=== PATIENT | female | born 1935 | race Caucasian/White ===

== ENCOUNTER 2016-07-26 05:19 | Inpatient (IN) | payer OTHER ==
--- NOTE | 2016-06-30 11:48 | PAT Medication Instructions ---
Service Date Jun 30, 2016. Current Home Medication List Aspirin (Aspirin Ec), 81 MG PO QAM Multivitamin (Multivitamin), 1 TAB PO QAM Medication Instructions For Your Scheduled Surgery - Hold the following medications the morning of surgery: Multivitamin (Multivitamin), 1 TAB PO QAM - Take the following medications the morning of surgery with a sip of water: Aspirin (Aspirin Ec), 81 MG PO QAM If you have any questions please call us at [phone] (Christa Lauren PA-C) or [phone] or [phone]
--- NOTE | 2016-06-30 12:36 | DIAGNOSTIC IMAGING REPORT ---
TWO VIEW CHEST CLINICAL HISTORY: Preoperative examination. FINDINGS: PA and lateral chest radiographs are obtained. No prior studies are available for comparison at the time of dictation. The heart is mildly enlarged and there is atherosclerotic calcification of the thoracic aorta. The pulmonary vasculature is noncongested. Enlargement of the central pulmonary arteries suggests pulmonary artery hypertension. Nonspecific interstitial thickening and biapical scarring are identified. Scattered calcified granulomas are observed. No airspace consolidation is seen typical for pneumonia and there is no pleural effusion. No pneumothorax is identified. The skeletal structures are osteopenic. Degenerative changes noted throughout the thoracic spine. IMPRESSION: Mild cardiac enlargement with no acute cardiopulmonary abnormality. Electronically signed by: Eulalio Green M.D. 06/30/2016 12:35 PM Dictated Date/Time: 06/30/2016 12:33 PM
[2016-06-30 12:50] LABS: BASO % 0.8 %; BASO ABS # 0.05 K/uL (0-0.2); COMPLETE YES; EOS % 2.3 %; HEMATOCRIT 39.5 % (37-47); LYMPH % 33.8 %; MEAN CELL VOLUME 97.3 fL (80-100); MEAN CORPUSCULAR HEMOGLOBIN 33.5 pg (25-34); MEAN CORPUSCULAR HGB CONC 34.4 g/dl (32-36); MEAN PLATELET VOLUME 10.5 fL (7.4-10.4); MONO % 7.4 %; NEUT % 55.7 %; PLATELET COUNT 218 K/uL (130-400); RED BLOOD COUNT 4.06 M/uL (4.2-5.4); WHITE BLOOD COUNT 6.21 K/uL (4.8-10.8)
[2016-06-30 12:53] LABS: URINE APPEARANCE CLEAR (CLEAR); URINE BILIRUBIN NEG (NEG); URINE COLOR YELLOW; URINE EPITHELIAL CELL AUTO >30 /lpf (0-5); URINE NITRITE NEG (NEG); URINE PH 5.5 (4.5-7.5); URINE SPECIFIC GRAVITY 1.013 (1.000-1.030); UROBILINOGEN NEG (NEG)
[2016-06-30 12:54] LABS: MANUAL MICROSCOPIC REQUIRED? NO; REVIEW REQ? NO
[2016-06-30 12:59] LABS: INR 0.9 (0.9-1.1); PARTIAL THROMBOPLASTIN RATIO 1.4
[2016-06-30 13:10] LABS: CALCIUM 9.1 mg/dl (8.5-10.1); CREATININE 0.71 mg/dl (0.60-1.20); POTASSIUM 4.9 mmol/L (3.5-5.1)
[2016-06-30 14:03] LABS: ESTIMATED AVERAGE GLUCOSE 105 mg/dl; HA1C FLAG Normal (Normal)
--- NOTE | 2016-06-30 15:40 | History and Physical ---
History & Physical Date Jun 30, 2016. Chief Complaint left knee pain History of Present Illness Nelly is a pleasant 80-year-old female who presents for preoperative evaluation prior to a left knee replacement. Patient states that they have been having pain in this knee for many years now, which has gradually worsened, it has now gotten to the point it is affecting her daily activities including walking, standing, going up and down steps. Patient has tried and failed conservative measures including previous cortisone injection, viscosupplementation, bracing, physical therapy, and PO NSAIDs with no relief. At this point in time, patient has failed conservative measures and would like to proceed with a left knee replacement. Past Medical/Surgical History she denies a history of hypertension, high cholesterol, diabetes, or bleeding/ clotting disorders. Additional History Hepatic Disease: No Endocrine Disorder: No Kidney Disease: No Hypertension: No Heart Disease: No Bleeding Tendencies: No Allergies Coded Allergies: Cefazolin (Verified Allergy, Unknown, RASH, 06/30/16) Prednisone (Verified Allergy, Unknown, ITCHY, 06/30/16) Home Medications Scheduled Aspirin (Aspirin Ec), 81 MG PO QAM Multivitamin (Multivitamin), 1 TAB PO QAM Physical Examination Skin: warm/dry, no rash Eyes: normal inspection, EOMI, sclerae normal ENT: normal ENT inspection, pharynx normal Head: normocephalic, atraumatic Neck: supple, no adenopathy, trachea midline Respiratory/Chest: lungs clear, normal breath sounds, no respiratory distress Cardiovascular: regular rate, rhythm, no edema, no murmur Abdomen / GI: normal bowel sounds, non tender Addiitonal Comments: Left Knee Exam Physical Exam Exam Findings Details Knee ROM L * Active ROM - Flexion: 120 degrees, Extension: 5 degrees, Factors: normal, Description: active pain free range of motion. Passive ROM - Factors: normal, Description: passive pain free range of motion. Knee ROM R * Active ROM - Factors: normal, Description: active pain free range of motion. Passive ROM - Factors: normal, Description: passive pain free range of motion. Strength LE Normal Strength Description - Normal lower extremity: Bilateral. Knee * Gait: Antalgic. Alignment - Left: varus, Clinical. Ecchymosis - Left: negative. Effusion - Left: mild. Swelling - Left: mild. Flexibility - Left: normal. Maximum tenderness - Left: Medial Joint Line. Patella exam - Crepitation - Left: negative. Patella position - Left: neutral. Tilt - Left: equal. [facility]'s - medial - Left: Positive. Knee Comments The patient has no calf tenderness. Knee Normal Inspection - Atrophy - Left: Absent. Skin - Left: Normal. Patella exam - Apprehension - Left: Negative. Q-angle - Left: Normal. Angel's - Left: Negative. [facility]'s - lateral - Left: Negative. Posterior drawer - Left: Negative. Anterior drawer - Left: Negative. Valgus stress - Left: Negative. Varus stress - Left: Negative. Extensor lag - Left: Normal. Neurovascular LE Normal Neurovascular examination including reflexes, sensation , and pulses is within normal limits. Left Knee X-Ray Xrays reviewed of the left knee showing findings consistent with degenerative joint disease including joint space narrowing, subchondral sclerosis and peripheral osteophyte formation. no acute bony pathology, overall varus alignment. Impression: degenerative joint disease of the left knee with no acute bony pathology noted. Diagnosis 1. Left Knee DJD Plan of Treatment Further care discussed with patient and at this point in time has failed conservative measures and would like to proceed with a left total knee replacement. Plan on discharge will be home with home health physical therapy. DVT prophalaxis with TEDs, SCDs and will also place on aspirin 81 mg p.o. b.i.d. for a month postop. Patient will have follow up appointment in our office two weeks post op for staple/suture removal and re-evaluation. Patient otherwise has no other questions or concerns.
[2016-07-26] VITALS (10 sets, daily range): BP systolic 93–113; BP diastolic 56–70; PULSE 61–86; TEMP 36.3–36.9; O2SAT 92–99; Ht 154.9 cm; Wt 47.0 kg
[~2016-07-26] VITALS: Ht 154.9 cm; Wt 47.0 kg
[~2016-07-26 05:19] MED LIST: ASPI81TA28 PO; MISSING PHYSICIAN SIGNATURE ON ORDER SCH; MULT-506 PO
[2016-07-26] MEDS ORDERED: VANCOMYCIN INJ 750 MG in SODIUM CHLORIDE 0.9% 250ML 250 ML IV SCH (06:00)
[2016-07-26] MEDS ORDERED: FAMOTIDINE 20 MG TAB PO SCH (06:00)
[2016-07-26] MEDS ORDERED: ROPIVACAINE 5MG/ML 30 ML 150 MG, BUPIVACAINE/EPINEPHR 0.5% MPF 30 ML, KETOROLAC TROMETH... INFIL SCH ×7 (06:00)
[2016-07-26] MEDS ORDERED: LACTATED RINGER'S 1000ML 1,000 ML IV SCH (06:00)
[2016-07-26] MEDS ORDERED: LACTATED RINGER'S 1000ML IV SCH (06:00)
[2016-07-26] MEDS ORDERED: DEXAMETHASONE 4 MG TAB PO SCH (06:00)
[2016-07-26] MEDS ORDERED: ACETAMINOPHEN 500 MG TAB PO SCH (06:00)
[2016-07-26] MEDS ORDERED: LACTATED RINGER'S 500 ML IV SCH (06:00)
[2016-07-26] MEDS ORDERED: LACTATED RINGER'S 1000ML 500 ML IV ONE (06:00)
[2016-07-26] MEDS ORDERED: CeleBREX 200 MG CAP PO SCH (06:00)
[2016-07-26] MEDS ORDERED: GABAPENTIN 300 MG CAP PO SCH (06:00)
[2016-07-26] MEDS ORDERED: METOCLOPRAMIDE HCL 10 MG TAB PO SCH (06:00)
[2016-07-26] MEDS ORDERED: BUPIVACAINE 0.5 % 5 MG/1 ML PF 10ML VIAL ONE ×2 (06:33)
[2016-07-26] MEDS ORDERED: FENTANYL CITRATE INJ 50 MCG/1 ML 2 ML VIAL ONE (06:39)
[2016-07-26] MEDS ORDERED: LIDOCAINE HCL 2% 2 ML VIAL (20MG/ML) ONE (06:39)
[2016-07-26] MEDS ORDERED: MIDAZOLAM HCL 1 MG/ML 2ML VIAL ONE (06:39)
[2016-07-26] MEDS ORDERED: PROPOFOL IV EMULSION 10 MG/ML 20 ML VIAL IV ONE (06:39)
[2016-07-26] MEDS ORDERED: FENTANYL CITRATE INJ 50 MCG/1 ML 2 ML VIAL IV PRN (06:45)
[2016-07-26] MEDS ORDERED: ATROPINE SULFATE 0.1 MG/ML 5ML SYR IV PRN (06:45)
[2016-07-26] MEDS ORDERED: ONDANSETRON INJ 2 MG/ML 2 ML VIAL IV PRN ×2 (06:45→08:45)
[2016-07-26] MEDS ORDERED: EpHEDrine SULFATE INJ 50 MG/ML AMP IV PRN (06:45)
[2016-07-26] MEDS ORDERED: MoRPHine SULFATE 10 MG/ML CARP/VIAL IV PRN ×2 (06:45→10:45)
[2016-07-26] MEDS ORDERED: MEPERIDINE HCL 25 MG/ML CARP IV PRN (06:45)
[2016-07-26] MEDS ORDERED: ORTHO JOINT ANESTHETIC ONE (06:47)
[2016-07-26] MEDS ORDERED: POVIDONE-IODINE OP SOLN 30 ML BTL ONE (06:47)
[2016-07-26] MEDS ORDERED: BACITRACIN 50000 UNIT VIAL ONE (06:48)
[2016-07-26] MEDS: TRANEXAMIC ACID INJ 1,000 MG in SODIUM CHLORIDE 0.9% 100ML 100 ML IV SCH ×2 (06:50→11:46)
--- NOTE | 2016-07-26 06:52 | History & Physical Bridge Note ---
H&P Re-Evaluation Bridge Note: I have examined the patient, reviewed the History & Physical and in the interval since the performance of the History & Physical I have noted the following changes of clinical significance: No changes noted
[2016-07-26] MEDS ORDERED: PHENYLEPHRINE 100MCG/ML 5ML SYR ONE (07:55)
--- NOTE | 2016-07-26 07:56 | [facility] Post Operative Brief Note ---
Immediate Operative Summary Operative Date Jul 26, 2016. Pre-Operative Diagnosis Left Knee Degenerative Joint Disease Post-Operative Diagnosis Same as preoperative Procedure(s) Performed Left Total Knee Arthroplasty, Cemented Surgeon Dr. Riki Majano Residential Director Surgeon(s) Murray Burns PA-C Estimated Blood Loss 5ml Findings severe djd lt knee Specimens A.) Left knee bone and tissue Complication(s) None Disposition Recovery Room / PACU
--- NOTE | 2016-07-26 08:10 | OPERATIVE REPORT ---
DATE OF OPERATION: 07/26/2016 PREOPERATIVE DIAGNOSIS: Severe end-stage degenerative joint disease, left knee. POSTOPERATIVE DIAGNOSIS: Severe end-stage degenerative joint disease, left knee. PROCEDURE: Left total knee arthroplasty utilizing Sanchez \T\ Nephew Journey II patient-matched knee, size 3 femur, 2 tibia, 12 poly, 29 patella. SURGEON: Dr. Majano. FARM MACHINERY ASSEMBLER: KHANH Denney, who was necessary for prepping, draping, retraction, wound closure of deep fascia, subcu, and skin, and was necessary for the case. ESTIMATED BLOOD LOSS: 5 mL COMPLICATIONS: None. TOURNIQUET TIME: 40 minutes. HISTORY OF PRESENT ILLNESS: The patient is a very pleasant 81-year-old white female who presents with severe endstage DJD about her left knee. She presents today for left total knee arthroplasty. Risks and complications have been discussed. She presents for total knee arthroplasty as noted above. OPERATION AND FINDINGS: PROCEDURE: The patient was properly prepped and draped in supine position for total knee arthroplasty after identifying the appropriate surgical site. An anterior midline incision was made through the subcutaneous tissues down to the region of the extensor mechanism. A medial parapatellar incision was subsequently made. Meticulous hemostasis was obtained and performed at all times. The patella having been subluxed lateralward, medial and lateral meniscal remnants were excised. The patellar cut was then initially made and was sized to the appropriate size. After subluxing the tibia forward the appropriate meniscal fragments having been removed the distal femur was then cut first utilizing a Sanchez and Nephew block. The distal femoral cuts and chamfer cuts were all made under direct visualization and the proximal tibial osteotomy cut was also made utilizing Sanchez and Nephew blocks and checked with an extramedullary guide. The appropriate trial components on the femur and tibia were placed. Appropriate trial spacers were used to check flexion and extension gaps. With flexion and extension gaps being equal, the components were then subsequently after thorough irrigation and debridement lavage components were then subsequently cemented in the following order: femur, tibia and patella. Exparel was used for intraoperative anesthesia, the medial parapatellar incision was closed utilizing #1 Vicryl, subQ was closed with 2-0 Vicryl, skin was closed with skin clips. A sterile compression dressing was placed. The patient was taken to recovery room in stable condition. Due to the complex nature of the procedure, the entire surgery was performed with the operational assistance of KHANH Denney. The assistant men's soccer coach, under direct supervision, was involved in the actual performance of all aspects of the surgical procedure including hemostasis, tissue retraction and incision, instrument management, patient positioning, and wound closure. I attest to the content of the Intraoperative Record and any orders documented therein. Any exceptio ns are noted below.
[2016-07-26] MEDS ORDERED: ONDANSETRON INJ 2 MG/ML 2 ML VIAL ONE (08:21)
[2016-07-26] MEDS ORDERED: KETOROLAC TROMETHAMINE 30 MG/ML VIAL IV. PRN (08:45)
[2016-07-26] MEDS ORDERED: BISACODYL 10 MG SUPP PR PRN (08:45)
[2016-07-26] MEDS ORDERED: MAGNESIUM HYDROXIDE SUSP 30 ML UDC PO PRN (08:45)
[2016-07-26] MEDS ORDERED: SOD PHOSPHATE/SOD BIPHOSPHATE ENEMA 132 ML BTL PR PRN (08:45)
[2016-07-26] MEDS ORDERED: ALUMINUM/MAGNESIUM/SIMETH (MAALOX MAX) 30 ML UDC PO PRN (08:45)
[2016-07-26] MEDS ORDERED: MoRPHine SULFATE 2 MG/ML CARP IV PRN ×2 (08:45→10:45)
--- NOTE | 2016-07-26 09:08 | DIAGNOSTIC IMAGING REPORT ---
LEFT KNEE 1 OR 2 VIEWS ROUTINE CLINICAL HISTORY: AP/LATERAL IN PACU LEFT KNEE postoperative evaluation COMPARISON: None. DISCUSSION: Total left knee arthroplasty. Good contact between prosthetic and underlying bone. Surgical drains are in position. Expected soft tissue postoperative change IMPRESSION: Anatomic alignment status post total left knee replacement Electronically signed by: Murray Carmen M.D. 07/26/2016 9:07 AM Dictated Date/Time: 07/26/2016 9:07 AM
--- NOTE | 2016-07-26 10:26 | Anesthesiology Progress Note ---
Anesthesia Post Op Note Date & Time Jul 26, 2016 at 10:26 Vital Signs Pain Intensity: 0 Vital Signs Past 12 Hours Date Time Temp Pulse Resp B/P Pulse Ox O2 Delivery O2 Flow Rate FiO2 07/26/16 09:40 36.6 90 18 97/53 95 Nasal Cannula 2 07/26/16 09:30 90 16 94/50 95 Nasal Cannula 2 07/26/16 09:20 85 18 92/57 97 Nasal Cannula 2 07/26/16 09:10 36.6 87 16 90/55 100 Nasal Cannula 2 07/26/16 09:00 36.6 91 16 95/54 100 Nasal Cannula 2 07/26/16 08:50 87 16 96/56 100 Mask 10 07/26/16 08:40 85 16 94/57 100 Mask 10 07/26/16 08:33 36.3 84 12 105/62 97 Mask 10 07/26/16 05:41 36.4 79 18 98/63 94 Room Air Notes Mental Status: alert / awake / arousable, participated in evaluation Pt Amnestic to Procedure: Yes Nausea / Vomiting: adequately controlled Pain: adequately controlled Airway Patency, RR, SpO2: stable & adequate BP & HR: stable & adequate Hydration State: stable & adequate Neuraxial Anesthesia: was administered, sensory block is resolving Anesthetic Complications: no major complications apparent
[2016-07-26] MEDS ORDERED: MoRPHine SULFATE 4 MG/ML 1 ML CARP\\VIAL IV PRN (10:45)
[2016-07-26] MEDS: MULTIVITAMIN TAB PO SCH (11:46)
[2016-07-26] MEDS: D5W AND 1/2NSS + 20MEQ KCL 1,000 ML IV SCH ×2 (11:47→20:36)
[2016-07-26] MEDS ORDERED: INFLUENZA ADMINISTRATION CHARGE ONE (14:00)
[2016-07-26] MEDS ORDERED: INFLUENZA VIRUS QUAD VACCINE 0.5 ML SYR IM. ONE (14:00)
[2016-07-26] MEDS: CLINDAMYCIN IV 600 MG in DEXTROSE 5% ADD-VANTAGE 50ML 50 ML IV SCH ×2 (14:24→22:10)
[2016-07-26] MEDS: ACETAMINOPHEN 500 MG TAB PO SCH ×2 (14:24→22:10)
[2016-07-26] MEDS: OXYCODONE HCL IR 5 MG TAB (IMMEDIATE RELEASE) PO PRN ×2 (19:21→20:41)
[2016-07-26] MEDS: DOCUSATE SODIUM 100 MG CAP PO SCH (20:37)
[2016-07-26] MEDS: ASPIRIN 81 MG ECTAB PO SCH (20:38)
[2016-07-26] MEDS: SENNA 8.6 MG TAB PO SCH (20:38)
[2016-07-27 03:15] VITALS: BP 92/47; PULSE 71; TEMP 36.5; O2SAT 93
[2016-07-27] MEDS: ACETAMINOPHEN 500 MG TAB PO SCH ×3 (05:15→20:43)
[2016-07-27] MEDS: D5W AND 1/2NSS + 20MEQ KCL 1,000 ML IV SCH (05:16)
[2016-07-27] MEDS: OXYCODONE HCL IR 5 MG TAB (IMMEDIATE RELEASE) PO PRN ×3 (05:16→20:42)
[2016-07-27] MEDS ORDERED: NURSING VERBAL MED ORDER ONE (06:00)
[2016-07-27 07:26] VITALS: BP 97/58; PULSE 71; TEMP 36.5; O2SAT 91
[2016-07-27 07:48] LABS: HEMATOCRIT 32.3 % (37-47); MEAN CELL VOLUME 94.7 fL (80-100); MEAN CORPUSCULAR HEMOGLOBIN 32.6 pg (25-34); MEAN CORPUSCULAR HGB CONC 34.4 g/dl (32-36); MEAN PLATELET VOLUME 9.4 fL (7.4-10.4); PLATELET COUNT 187 K/uL (130-400); RED BLOOD COUNT 3.41 M/uL (4.2-5.4); WHITE BLOOD COUNT 11.61 K/uL (4.8-10.8)
[2016-07-27 07:59] LABS: CALCIUM 7.9 mg/dl (8.5-10.1); CREATININE 0.79 mg/dl (0.60-1.20); POTASSIUM 4.4 mmol/L (3.5-5.1)
[2016-07-27 08:06] LABS: PROTHROMBIN TIME (PATIENT) 10.2 SECONDS (9.0-12.0)
--- NOTE | 2016-07-27 08:12 | Orthopedic Progress Note ---
Orthopedic Progress Note Date of Service Jul 27, 2016. Subjective Post OP Day: 1 (s/p Left TKA) Reports: feeling well, pain controlled w PO medications, Denies: SOB, calf pain , chest pain, complaints, light headedness, nausea / vomiting Objective calves soft nontender, N/V intact, capillary refill less than 2 sec., dressing C /D/I, A&O x3, toes mobile Date Time Temp Pulse Resp B/P Pulse Ox O2 Delivery O2 Flow Rate FiO2 07/27/16 07:26 36.5 71 16 97/58 91 Room Air 07/27/16 03:15 36.5 71 16 92/47 93 Room Air 07/26/16 23:30 36.5 73 16 95/59 92 Room Air 07/26/16 23:20 Room Air 07/26/16 20:07 36.9 81 17 95/57 93 Room Air 07/26/16 19:15 Room Air 07/26/16 16:32 36.3 73 16 96/60 97 Nasal Cannula 2.0 07/26/16 16:00 95 Room Air 07/26/16 13:00 61 16 113/70 93 Nasal Cannula 2.0 07/26/16 12:10 78 18 105/66 95 Nasal Cannula 2.0 07/26/16 11:57 Nasal Cannula 07/26/16 11:56 36.3 86 14 93/56 97 Nasal Cannula 2.0 07/26/16 11:55 Nasal Cannula 07/26/16 11:00 78 20 98/61 99 Nasal Cannula 2.0 07/26/16 10:30 82 16 105/64 97 Nasal Cannula 2.0 07/26/16 09:40 36.6 90 18 97/53 95 Nasal Cannula 2 07/26/16 09:30 90 16 94/50 95 Nasal Cannula 2 07/26/16 09:20 85 18 92/57 97 Nasal Cannula 2 07/26/16 09:10 36.6 87 16 90/55 100 Nasal Cannula 2 07/26/16 09:00 36.6 91 16 95/54 100 Nasal Cannula 2 07/26/16 08:50 87 16 96/56 100 Mask 10 07/26/16 08:40 85 16 94/57 100 Mask 10 07/26/16 08:33 36.3 84 12 105/62 97 Mask 10 Laboratory Results 24 Hours: Test 07/27/16 07:35 Hematocrit 32.3 % Hemoglobin 11.1 g/dL Prothromb Time International Ratio 1.0 Prothrombin Time 10.2 SECONDS Assessment & Plan Assessment: POD #1 s/p Left TKA -PT/OT -dvt proph with DAYSI/SCD/ASA -plan for dc home with HHPT when stable Discharge Planning Discharge Planning: home with home health DVT Prophylaxis: TEDs, SCDs, ASA Therapy: Physical Therapy
--- NOTE | 2016-07-27 08:15 | Discharge Instructions ---
Discharge Instructions Date of Service Jul 27, 2016. Admission Reason for Admission: Unilateral Primary Osteoarthritis Knee Left Discharge Discharge Diagnosis / Problem: s/p Left Total Knee Replacement Discharge Goals Goal(s): Decrease discomfort, Improve function, Increase independence Activity Recommendations Activity Limitations: as noted below Weightbearing Status: Left weightbearing . Instructions / Follow-Up Instructions / Follow-Up ACTIVITY RECOMMENDATIONS: SELF CARE INSTRUCTIONS AFTER TOTAL KNEE REPLACEMENT A. You may need to continue a physical therapy program after discharge from the hospital. There are several options available to you. Your doctor will assist you in selecting the best one for you. 1. An out-patient facility 2 to 3 times a week for therapy or home therapy. 2. Continue working on all exercises taught to you in the hospital. Your goals should be to increase bending of your knee to 90 degrees and beyond and to fully straighten your knee. B. You may progress at your own pace from walking with a walker or crutches to a cane; then to no assistive devices. C. Make walking a part of your daily routine. Be up as much as comfortable with rest periods throughout the day. Rest with leg elevation is very important. Use the ice wrap frequently for the first 3-4 weeks. D. There are no restrictions on activities. You may ride in a car, shop, participate in induction coordination engineer and all social activities. E. Wear the long elastic stockings (DAYSI hose) 20 hours a day for 2 weeks after surgery. They can be removed several times a day for laundering and for a bath. F. You may shower, no tub baths until cleared by your doctor. SPECIAL CARE INSTRUCTIONS: VERY IMPORTANT TO READ AND REVIEW A. There are a few signs you need to watch for after you are home. Call [facility] if you notice any of the followin. Increased severe knee pain. Some pain is expected especially when you exercise. 2. Increased swelling in your leg or knee; pain or swelling of the calf muscle in either lower leg. 3. Any fluid drainage from the incision. 4. Shortness of breath or chest pain. B. Please call [facility] at if you have any concerns or questions about your operation or recovery. The doctor or his nurse will return your call promptly. C. You must take antibiotics before dental work, bladder, bowel or other surgery. Your doctor will provide you with a permanent care to carry describing this precaution. IMPORTANT: * REMEMBER TO TAKE ASPIRIN, 81 MG, TWICE DAILY FOR 4 WEEKS UNLESS OTHERWISE DIRECTED. THIS IS YOUR BLOOD THINNER. * HIGH RISK PATIENTS MAY BE PRESCRIBED A STRONGER BLOOD THINNER. THIS WILL BE PROVIDED AT DISCHARGE. * CALL IF INCREASED PAIN, REDNESS, DRAINAGE OR FEVER GREATER THAT 101. * WEAR DAYSI HOSE 20 HOURS PER DAY FOR 2 WEEKS. * DERMABOND Prineo- This is a mesh tape dressing that is covered with glue. It should remain in place until the incision is properly healed, usually 10-14 days. This dressing is designed to naturally slough off. You may trim the excess mesh tape as it peels off. Incision may be briefly wet in a shower. Dry immediately by blotting with a clean, dry towel. Do not bath or swim until instructed by your doctor. Do not scratch, rub, or pick at the dressing. Do not apply any topical ointments or lotions until dressing is completely removed and/or instructed by your doctor. There may be a small piece of suture material at one end of your incision. Do not pull or trim this. If it is bothersome or catching on clothing, you may cover it with a band-aid. FOLLOW UP VISIT: If appointment is not already scheduled: Please call [facility] to make a follow-up appointment for 2 weeks after your surgery at . Current Hospital Diet Patient's current hospital diet: Regular Diet Discharge Diet Recommended Diet: Regular Diet Procedures Procedures Performed: Left Total Knee Arthroplasty, Cemented Pending Studies Studies pending at discharge: no Laboratory Results Hemoglobin A1c Test 06/30/16 11:53 Range/Units Estimated Average Glucose 105 mg/dl Hemoglobin A1c 5.3 4.5-5.6 % Medical Emergencies . Who to Call and When: Medical Emergencies: If at any time you feel your situation is an emergency, please call 911 immediately. . Non-Emergent Contact Non-Emergency issues call your: Primary Care Provider, Surgeon . "Provider Documentation" section prepared by Murray Burns. VTE Core Measure Inpt VTE Proph given/why not?: Other Anticoagulation (ASA 81mg po bid x 1 month ), T.E.D. Stockings, SCD's
[2016-07-27] MEDS: DOCUSATE SODIUM 100 MG CAP PO SCH ×2 (08:54→20:44)
[2016-07-27] MEDS: MULTIVITAMIN TAB PO SCH (08:54)
[2016-07-27] MEDS: PANTOprazole SOD 40 MG TAB PO SCH (08:55)
[2016-07-27] MEDS: ASPIRIN 81 MG ECTAB PO SCH ×2 (08:55→20:44)
--- NOTE | 2016-07-27 10:50 | Anesthesiology Progress Note ---
Anesthesia Post Op Note Date & Time Jul 27, 2016 at 10:50 Vital Signs Vital Signs Past 12 Hours Date Time Temp Pulse Resp B/P Pulse Ox O2 Delivery O2 Flow Rate FiO2 07/27/16 08:20 Room Air 07/27/16 07:26 36.5 71 16 97/58 91 Room Air 07/27/16 03:15 36.5 71 16 92/47 93 Room Air 07/26/16 23:30 36.5 73 16 95/59 92 Room Air 07/26/16 23:20 Room Air Notes Mental Status: alert / awake / arousable, participated in evaluation Pt Amnestic to Procedure: Yes Nausea / Vomiting: adequately controlled Pain: adequately controlled Airway Patency, RR, SpO2: stable & adequate BP & HR: stable & adequate Hydration State: stable & adequate Neuraxial Anesthesia: was administered, sensory block resolved Anesthetic Complications: no major complications apparent
[2016-07-27 11:33] VITALS: BP 91/50; PULSE 75; TEMP 36.6; O2SAT 90
[2016-07-27 15:48] VITALS: BP 91/51; PULSE 66; TEMP 36.9; O2SAT 92
[2016-07-27] MEDS: SENNA 8.6 MG TAB PO SCH (20:44)
[2016-07-27] MEDS: CeleBREX 200 MG CAP PO SCH (20:45)
[2016-07-27 23:35] VITALS: BP 124/58; PULSE 91; TEMP 36.8; O2SAT 91
[2016-07-28] MEDS: OXYCODONE HCL IR 5 MG TAB (IMMEDIATE RELEASE) PO PRN ×3 (03:55→12:29)
[2016-07-28] MEDS: ACETAMINOPHEN 500 MG TAB PO SCH (05:59)
[2016-07-28 06:15] VITALS: BP 101/59; PULSE 78; TEMP 36.8; O2SAT 91
[2016-07-28] MEDS: ASPIRIN 81 MG ECTAB PO SCH (07:27)
[2016-07-28] MEDS: MULTIVITAMIN TAB PO SCH (07:27)
[2016-07-28] MEDS: CeleBREX 200 MG CAP PO SCH (07:27)
[2016-07-28] MEDS: PANTOprazole SOD 40 MG TAB PO SCH (07:27)
[2016-07-28] MEDS: DOCUSATE SODIUM 100 MG CAP PO SCH (07:28)
--- NOTE | 2016-07-28 07:31 | Orthopedic Progress Note ---
Orthopedic Progress Note Date of Service Jul 28, 2016. Subjective Post OP Day: 2 Reports: feeling well, pain controlled w PO medications, Denies: SOB, calf pain , chest pain, complaints, light headedness, nausea / vomiting Additional Notes: c/o mild burning medial knee Objective calves soft nontender, N/V intact, capillary refill less than 2 sec., incision C /D/I, A&O x3, toes mobile Date Time Temp Pulse Resp B/P Pulse Ox O2 Delivery O2 Flow Rate FiO2 07/28/16 07:24 Room Air 07/28/16 06:15 36.8 78 16 101/59 91 Room Air 07/27/16 23:35 36.8 91 18 124/58 91 Room Air 07/27/16 20:45 Room Air 07/27/16 15:48 36.9 66 16 91/51 92 Room Air 07/27/16 11:33 36.6 75 16 91/50 90 Room Air 07/27/16 08:20 Room Air Laboratory Results 24 Hours: Test 07/27/16 07:35 Hematocrit 32.3 % Hemoglobin 11.1 g/dL Prothromb Time International Ratio 1.0 Prothrombin Time 10.2 SECONDS Assessment & Plan Assessment: POD #2 s/p Left TKA -PT/OT -dvt proph with DAYSI/SCD/ASA -plan for dc home with HHPT when stable, likely after PT today Discharge Planning Discharge Planning: home with home health DVT Prophylaxis: TEDs, SCDs, ASA Therapy: Physical Therapy
[2016-07-28] MEDS ORDERED: ASPEC81 PO (07:34)
[2016-07-28] MEDS ORDERED: CLB200 PO (07:34)
[2016-07-28] MEDS ORDERED: RXC5 PO (07:34)
[2016-07-28] MEDS ORDERED: ACET-1138 PO (07:34)
[2016-07-28] MEDS ORDERED: ONDA8TAB6 PO (07:34)
--- NOTE | 2016-07-28 07:37 | Discharge Summary ---
Orthopedic Discharge Summary Admission Date/Reason Jul 26, 2016 at 06:00 Unilateral Primary Osteoarthritis Knee Left. Discharge Date/Disposition Jul 28, 2016 Home with services Diagnosis Principal Diagnosis: left knee osteoarthritis Procedure(s) Performed Left total knee arthroplasty utilizing Sanchez \T\ [facility] II patient-matched knee, size 3 femur, 2 tibia, 12 poly, 29 patella. Consultations NONE Medication Reconciliation New Medications: Ondansetron Hcl (Zofran) 8 Mg Tab 8 MG PO Q8 PRN for Nausea, #20 TAB Acetaminophen (Tylenol Extra Strength) 500 Mg Tab 1000 MG PO Q8, #126 TAB Aspirin (Aspirin EC Low Dose) 81 Mg Ectab 81 MG PO BID for 30 Days, #60 TAB Celecoxib (Celebrex) 200 Mg Cap 200 MG PO BID for 30 Days, #60 CAP Oxycodone HCl (Oxycodone HCl) 5 Mg Tab 5-10 MG PO Q4H PRN for Pain, #60 TAB Continued Medications: Multivitamin (Multivitamin) Tab 1 TAB PO QAM, TAB Discontinued Medications: Aspirin (Aspirin Ec) 81 Mg Tab 81 MG PO QAM Admission Physical Exam As per Admitting History & Physical. Hospital Course Patient was a same day admission after undergoing a successful left TKA. she tolerated the procedure well. Post-operatively, her activity was progressed and well tolerated. Please refer to daily progress notes and PT notes for complete details. After exam on 07/28/16, patient felt to be stable for discharge home with home health PT. Patient will f/u in the office in 2 weeks for further evaluation including x-rays and incision check, sooner if having any issues or concerns. Below are pertinent labs/studies during their hospital stay: Test 07/27/16 07:35 Range/Units White Blood Count 11.61 4.8-10.8 K/uL Red Blood Count 3.41 4.2-5.4 M/uL Hemoglobin 11.1 12.0-16.0 g/dL Hematocrit 32.3 37-47 % Mean Corpuscular Volume 94.7 80-100 fL Mean Corpuscular Hemoglobin 32.6 25-34 pg Mean Corpuscular Hemoglobin Concent 34.4 32-36 g/dl RDW Standard Deviation 42.0 36.4-46.3 fL RDW Coefficient of Variation 12.2 11.5-14.5 % Platelet Count 187 130-400 K/uL Mean Platelet Volume 9.4 7.4-10.4 fL Prothrombin Time 10.2 9.0-12.0 SECONDS Prothromb Time International Ratio 1.0 0.9-1.1 Sodium Level 144 136-145 mmol/L Potassium Level 4.4 3.5-5.1 mmol/L Chloride Level 112 98-107 mmol/L Carbon Dioxide Level 26 21-32 mmol/L Anion Gap 6.0 3-11 mmol/L Blood Urea Nitrogen 15 7-18 mg/dl Creatinine 0.79 0.60-1.20 mg/dl Est Creatinine Clear Calc Drug Dose 40.7 ml/min Estimated GFR () 80.8 Estimated GFR (Non- 69.7 BUN/Creatinine Ratio 19.0 10-20 Random Glucose 138 70-99 mg/dl Calcium Level 7.9 8.5-10.1 mg/dl Last Vital Signs Documentation Date Time Temp Pulse Resp B/P Pulse Ox O2 Delivery O2 Flow Rate FiO2 07/28/16 07:24 Room Air 07/28/16 06:15 36.8 78 16 101/59 91 07/26/16 16:32 2.0 Discharge Instructions ACTIVITY RECOMMENDATIONS: SELF CARE INSTRUCTIONS AFTER TOTAL KNEE REPLACEMENT A. You may need to continue a physical therapy program after discharge from the hospital. There are several options available to you. Your doctor will assist you in selecting the best one for you. 1. An out-patient facility 2 to 3 times a week for therapy or home therapy. 2. Continue working on all exercises taught to you in the hospital. Your goals should be to increase bending of your knee to 90 degrees and beyond and to fully straighten your knee. B. You may progress at your own pace from walking with a walker or crutches to a cane; then to no assistive devices. C. Make walking a part of your daily routine. Be up as much as comfortable with rest periods throughout the day. Rest with leg elevation is very important. Use the ice wrap frequently for the first 3-4 weeks. D. There are no restrictions on activities. You may ride in a car, shop, participate in windows systems architect and all social activities. E. Wear the long elastic stockings (DAYSI hose) 20 hours a day for 2 weeks after surgery. They can be removed several times a day for laundering and for a bath. F. You may shower, no tub baths until cleared by your doctor. SPECIAL CARE INSTRUCTIONS: VERY IMPORTANT TO READ AND REVIEW A. There are a few signs you need to watch for after you are home. Call [facility] if you notice any of the followin. Increased severe knee pain. Some pain is expected especially when you exercise. 2. Increased swelling in your leg or knee; pain or swelling of the calf muscle in either lower leg. 3. Any fluid drainage from the incision. 4. Shortness of breath or chest pain. B. Please call [facility] at if you have any concerns or questions about your operation or recovery. The doctor or his nurse will return your call promptly. C. You must take antibiotics before dental work, bladder, bowel or other surgery. Your doctor will provide you with a permanent care to carry describing this precaution. IMPORTANT: * REMEMBER TO TAKE ASPIRIN, 81 MG, TWICE DAILY FOR 4 WEEKS UNLESS OTHERWISE DIRECTED. THIS IS YOUR BLOOD THINNER. * HIGH RISK PATIENTS MAY BE PRESCRIBED A STRONGER BLOOD THINNER. THIS WILL BE PROVIDED AT DISCHARGE. * CALL IF INCREASED PAIN, REDNESS, DRAINAGE OR FEVER GREATER THAT 101. * WEAR DAYSI HOSE 20 HOURS PER DAY FOR 2 WEEKS. * DERMABOND Prineo- This is a mesh tape dressing that is covered with glue. It should remain in place until the incision is properly healed, usually 10-14 days. This dressing is designed to naturally slough off. You may trim the excess mesh tape as it peels off. Incision may be briefly wet in a shower. Dry immediately by blotting with a clean, dry towel. Do not bath or swim until instructed by your doctor. Do not scratch, rub, or pick at the dressing. Do not apply any topical ointments or lotions until dressing is completely removed and/or instructed by your doctor. There may be a small piece of suture material at one end of your incision. Do not pull or trim this. If it is bothersome or catching on clothing, you may cover it with a band-aid. FOLLOW UP VISIT: If appointment is not already scheduled: Please call [facility] to make a follow-up appointment for 2 weeks after your surgery at .
[2016-07-28 09:13] VITALS: BP 151/81; PULSE 83; O2SAT 96
[2016-07-28 10:54] VITALS: BP 101/59; PULSE 78; TEMP 36.8; O2SAT 91
--- NOTE | 2016-08-03 11:30 | EDITING REQUIRED CODING QUERY ---
SUPPORTING DIAGNOSIS NEEDED Dr. Estrella, A supporting diagnosis is required for the test/procedure performed on this patient in order for us to be reimbursed by the patient's insurance. Please provide a supporting diagnosis for the following test/procedure listed below next to the test name along with your signature. *If there is no additional diagnosis for this patient that would support the following test/procedure please document that below next to the test/procedure. Test(s)/Procedure(s) that require a supporting diagnosis: * [id number] GLYCATED HEMOGLOBIN DIAGNOSIS: Diabetes DATE OF SERVICE: 06/30/16 Provider Signature: __ruslan estrella Date: _[id number] Thank you Micheal Vega [facility] Information Management Once completed, please kindly fax back to [phone] For questions please call [phone]
== END 2016-07-28 12:50 | disposition home health service (06) | DRG 470 ==
LOC: ENRESERVTM → ENRESERVDT → C.ACU 05:19 → C.MSN 06:00
PROVIDERS: ADMIT Orthopaedic Surgery; ATTEND Orthopaedic Surgery
PROC: 0SRD0JZ Replacement of Left Knee Joint with Synthetic Substitute, Open Approach (ICD-10-PCS; principal; 2016-07-26 07:00)
DX: M17.12 Unilateral primary osteoarthritis, left knee (principal); Z79.82 Long term (current) use of aspirin; E11.9 Type 2 diabetes mellitus without complications

== ENCOUNTER 2016-08-06 09:41 | Emergency (ER) | payer OTHER ==
[~2016-08-06] VITALS: Ht 154.9 cm; Wt 48.9 kg
[~2016-08-06 09:41] MED LIST changes: +ACET-1138 PO; +ASPEC81 PO; -ASPI81TA28 PO; +CLB200 PO; -MISSING PHYSICIAN SIGNATURE ON ORDER SCH; +ONDA8TAB6 PO; +RXC5 PO
[2016-08-06 09:44] VITALS: TEMP 36.9; Ht 154.9 cm; Wt 48.9 kg
[2016-08-06] MEDS ORDERED: AMOX875T PO (10:20)
[2016-08-06] MEDS ORDERED: ONDA4TAB46 PO (10:20)
[2016-08-06] MEDS ORDERED: BISA10SU3 PR (10:20)
[2016-08-06] MEDS ORDERED: BISA-16 PO (10:20)
[2016-08-06] MEDS ORDERED: HYDR-5688 PO (10:20)
[2016-08-06] MEDS ORDERED: POLY335019 PO (10:20)
--- NOTE | 2016-08-06 12:00 | EMERGENCY ROOM VISIT NOTE ---
History Report prepared by Olga: Chrissie Paulino Under the Supervision of: Dr. Deonte Carty M.D. First contact with patient: 09:55 Chief Complaint: CONSTIPATION Stated Complaint: NAUSEA, CONSTIPATED-NO BM SINCE SUNDAY Nursing Triage Summary: PT had knee replacement on the and reports no BM since Sunday. PCP recomends KUB History of Present Illness The patient is a 81 year old female who presents to the Emergency Room with complaints of constant constipation starting 5 days ago. The patient states that she had a knee surgery on 07/26 and was discharged from the hospital on oxycodone and Colase. She reports that she broke out in hives shortly after her stay from the oxycodone and was switched to hydrocodone that is now making her constipated. She notes that she takes 2 every 5-6 hours for pain. She reports that she has not taken any this morning. The patient tried suppository and MiraLAX with no relief. She notes she has a past history of constipation that has become worsened since the knee replacement. The patient complains of abdominal pain and knee pain secondary to her surgery. She denies any urinary symptoms. Source of History: patient Onset: 5 days ago Position: other (global) Quality: other (constipation) Timing: constant Modifying Factors (Relieving): other (none) Associated Symptoms: + abdominal pain, No urinary symptoms Note: The patient complains of knee pain secondary to her surgery. Review of Systems All systems have been listed, reviewed, and are negative other than those previously mentioned. Please see Additional Medical History Sheet. Past Medical & Surgical Surgical Problems: (1) S/P TKR (total knee replacement) Family History No pertinent family history stated. Social History Smoking Status: Never Smoker Marital Status: Occupation Status: retired Current/Historical Medications Scheduled Amoxicillin & Pot Clavulanate (Augmentin 875-125 mg), 1 TAB PO BID Aspirin (Aspirin EC Low Dose), 81 MG PO BID Bisacodyl (Dulcolax), 5 MG PO UD Bisacodyl (Dulcolax), [address] BID Celecoxib (Celebrex), 200 MG PO BID Multivitamin (Multivitamin), 1 TAB PO QAM Polyethylene Glycol 3350 (Miralax), 17 GM PO DAILY Scheduled PRN Hydrocodone/Acetaminophen 5MG/325MG (Raymond 5MG/325MG), 2 TABLETS PO Q6 PRN for Pain Ondansetron Hcl (Zofran), 4 MG PO Q8 PRN for Nausea Allergies Coded Allergies: Cefazolin (Verified Allergy, Unknown, RASH, 08/06/16) Oxycodone (Unverified Allergy, Unknown, hives, 08/06/16) Prednisone (Verified Allergy, Unknown, ITCHY, 08/06/16) Physical Exam Vital Signs Date Time Temp Pulse Resp B/P Pulse Ox O2 Delivery O2 Flow Rate FiO2 08/06/16 13:55 87 18 121/70 96 08/06/16 12:22 84 20 118/60 92 08/06/16 09:44 36.9 93 20 112/66 93 Room Air Physical Exam GENERAL: Patient awake, alert, oriented x 3. Patient follows commands. Patient does not appear toxic. Patient is adequately hydrated and well- nourished. SKIN: No erythema, pallor, cyanosis or rash HEENT: Normal head, pupils equal, reactive to light and accommodation. Oral cavity and posterior pharynx appear normal. Neck: Without adenopathy, no neck vein distention. LUNGS: Clear to auscultation. No wheezes, no rales, no rhonchi. HEART: No murmurs. No gallops. No rubs ABDOMEN: No masses, no rebound, no hepatomegaly or splenomegaly. Abdomen and bowel sounds active, soft, vague suprapubic tenderness, no rebound, no guarding EXTREMITIES: No signs of trauma or infection. NEUROLOGIC: Cranial nerves II-XII within normal limits. No gross motor sensory function deficits. Medical Decision & Procedures Laboratory Results 08/06/16 12:16 08/06/16 12:16 Test 08/06/16 12:16 Red Blood Count 3.27 M/uL (4.2-5.4) Mean Corpuscular Volume 94.8 fL (80-100) Mean Corpuscular Hemoglobin 33.6 pg (25-34) Mean Corpuscular Hemoglobin Concent 35.5 g/dl (32-36) RDW Standard Deviation 45.0 fL (36.4-46.3) RDW Coefficient of Variation 13.2 % (11.5-14.5) Mean Platelet Volume 8.7 fL (7.4-10.4) Anion Gap 7.0 mmol/L (3-11) Est Creatinine Clear Calc Drug Dose 54.5 ml/min Estimated GFR () 98.4 Estimated GFR (Non- 84.9 BUN/Creatinine Ratio 18.7 (10-20) Calcium Level 8.3 mg/dl (8.5-10.1) Laboratory results as stated above per my review. Medications Administered Medications (Trade) Dose Ordered Sig/Farhana Route Start Time Stop Time Status Last Admin Dose Admin Polyethylene (Miralax Powder Packet) 17 gm NOW ONCE PO 08/06/16 12:15 08/06/16 12:16 DC 08/06/16 12:15 17 GM ED Course 0956: Past medical records reviewed. The patient was evaluated in room A12. A complete history and physical examination was performed. 1215: Miralax Powder Packet 17gm PO. 1339: I reevaluated the patient and updated her. 1347: Upon reevaluation, the patient appeared to have improvement of her symptoms. I discussed today's findings with the patient. She verbalized agreement of the treatment plan. She was discharged home. Medical Decision Differential Diagnoses include Fecal impaction, constipation, narcotic induced constipation. The patient is here with constipation. The patient was not impacted. Soapsuds enema did not provide much relief. The patient was given an additional dose of MiraLAX. Electrolytes and CBC were evaluated. Please see above. The patient will be sent home and asked to take another dose of MiraLAX tonight if she has not yet had a BM. Impression Primary Impression: Constipation Scribe Attestation The scribe's documentation has been prepared under my direction and personally reviewed by me in its entirety. I confirm that the note above accurately reflects all work, treatment, procedures, and medical decision making performed by me. Departure Information Dispostion Home / Self-Care Referrals Juan Patterson D.O. (PCP) Forms HOME CARE DOCUMENTATION FORM, IMPORTANT VISIT INFORMATION Patient Instructions Constipation, My [facility] Additional Instructions Take another full dose of MiraLAX tonight if you have not yet had a bowel movement today. Drink extra fluids. Follow-up with your family physician within the next 2 days if you have not yet had a bowel movement. Continue taking MiraLAX until you do have had a bowel movement.
[2016-08-06] MEDS ORDERED: POLYETHYLENE (MIRALAX) 17 GM PACK PO ONE (12:15)
[2016-08-06 12:45] LABS: MEAN CELL VOLUME 94.8 fL (80-100); MEAN CORPUSCULAR HEMOGLOBIN 33.6 pg (25-34); MEAN CORPUSCULAR HGB CONC 35.5 g/dl (32-36); MEAN PLATELET VOLUME 8.7 fL (7.4-10.4); PLATELET COUNT 404 K/uL (130-400); RED BLOOD COUNT 3.27 M/uL (4.2-5.4); WHITE BLOOD COUNT 8.45 K/uL (4.8-10.8)
[2016-08-06 12:48] LABS: BUN/CREATININE RATIO 18.7 (10-20); CALCIUM 8.3 mg/dl (8.5-10.1); CREATININE 0.6 mg/dl (0.60-1.20); POTASSIUM 3.8 mmol/L (3.5-5.1)
[2016-08-06 13:55] VITALS: BP 121/70; PULSE 87; O2SAT 96
== END 2016-08-06 13:56 | disposition home or self-care (01) ==
LOC: C.EDB 09:42 → C.EDA 13:56
DX: K59.00 Constipation, unspecified (principal); Z96.659 Presence of unspecified artificial knee joint; Z79.82 Long term (current) use of aspirin; Z79.899 Other long term (current) drug therapy; Z88.5 Allergy status to narcotic agent; Z88.8 Allergy status to other drugs, medicaments and biological substances

== ENCOUNTER 2019-10-07 14:59 | Inpatient (IN) ==
--- NOTE | 2019-10-07 16:05 | Emergency Department Note ---
History of Present Illness General Chief complaint: Fever Stated complaint: FEVER,BEING TREATED FOR UTI Time Seen by Provider: 10/07/19 15:40 Source: patient and family History of Present Illness Provider complaint: Fever Onset (ago): hour(s) Location: head Severity: severe Pain Consistency: + constant Quality: + other (T-max 106) Relieved By: + medication Associated symptoms: + weakness; no chest pain, no cough, no fever/chills, no headaches, no nausea/vomiting and no shortness of breath This is an 84-year-old female who presents for fever starting earlier today. The patient went to a wellness visit yesterday and was placed on Bactrim for a UTI. She has taken a dose yesterday as well as today but had a temperature of 106 today. The last time she had a fever of 105 she had developed sepsis from a UTI. The patient also got up to go to the bathroom and felt extremely unsteady and had difficulty walking on her own. She was shaking all over. She denies any cough or cold symptoms, chest pain, shortness of breath, headache, myalgias, abdominal pain, vomiting or diarrhea or any known cold exposure. She does state that she has chronic urinary incontinence but otherwise denies any dysuria or pain with urination. Home Medications Home Medications Medication Instructions Recorded Confirmed Type jgitpwdo-qkv-EC-lycopen-lutein 1 tab PO QAM 11/01/18 10/07/19 History [Centrum Silver] meloxicam 7.5 mg tablet 7.5 mg PO QAM 12/30/18 10/07/19 History denosumab 60 mg/mL subcutaneous 60 mg SQ .[id number] 07/01/19 10/07/19 History syringe leflunomide 10 mg tablet 10 mg PO QAM 07/01/19 10/07/19 History gabapentin 100 mg capsule 200 mg PO TID #180 cap 07/21/19 10/07/19 Rx aspirin 81 mg tablet,delayed 81 mg PO QAM 10/06/19 10/07/19 History release linaclotide 72 mcg capsule 72 mcg PO QAM #30 cap 10/06/19 10/07/19 Rx furosemide 20 mg PO QAM 10/07/19 10/07/19 History lorazepam 1 mg PO HS PRN 10/07/19 10/07/19 History oxybutynin chloride 5 mg PO QAM 10/07/19 10/07/19 History sulfamethoxazole 800 1 tab PO BID #14 tab 10/07/19 10/07/19 Rx mg-trimethoprim 160 mg tablet tramadol 50 mg PO BID PRN 10/07/19 10/07/19 History Allergies Allergy/AdvReac Type Severity Reaction Status Date / Time cefazolin Allergy Unknown RASH Verified 10/06/19 13:13 oxycodone Allergy Unknown hives Verified 10/06/19 13:13 prednisone Allergy Unknown ITCHY Verified 10/06/19 13:13 Past Med/Surg History Medical History Chest pain (Inactive) Meningioma, spinal Shortness of breath (Inactive) Surgical History H/O lumpectomy History of appendectomy History of cataract surgery History of hysterectomy History of rotator cuff surgery S/P TKR (total knee replacement) Family History Sister Breast cancer Stroke Father Myocardial infarction Daughter Ovarian cancer Mother Stroke Other Family history non-contributory Denies family history of Colon cancer Prostate cancer Social History Preferred Language: Kyrgyz Communication Ability: Effective Beliefs That Will Affect Care: None marital status: Current Living Situation: Alone current occupational status: retired Other Information That Helps Us Care for You: No Feels Safe at Home: Yes Safety Concerns: Feels Safe At This Time Smoking Status: Never smoker Hx Alcohol Use: No Hx Substance Use: No Childhood Exposure to Second-Hand Smoke: Yes Dental Care, Regularly: No Physical Activity Frequency: Does not Exercise Seatbelt Use: always Sunscreen Use: Yes Review of Systems See HPI for pertinent positives & negatives. and A total of 10 systems reviewed and were otherwise negative Physical Exam Vital Signs Vital Signs - 24 hr 10/07/19 15:06 10/07/19 16:41 Temperature 37.1 C Temperature Source Oral Pulse Rate 101 H Pulse Rate [Left Finger] 98 H Respiratory Rate 18 24 Blood Pressure 102/62 Blood Pressure [Right Arm] 94/58 L Blood Pressure Mean 75 Blood Pressure Mean [Right Arm] 70 Pulse Oximetry 93 95 Oxygen Delivery Method Room Air Sepsis Recent Fever Within 48 Hours No Sepsis New/Unexplained Change in Mental Status No Sepsis Action Taken by Nursing No Action Required Constitutional: Vital signs reviewed. Eyes: Pupils are equal round reactive to light. Conjunctiva are noninjected. ENT: Pharynx is clear without erythema or exudate. Mucous membranes are moist. Neck supple without meningeal signs. Respiratory: Clear to auscultation bilaterally. Breath sounds are equal bilaterally. Cardiovascular: Regular rate and rhythm. No rubs or gallops. GI: Soft, nondistended and nontender. Bowel sounds are present. Musculoskeletal: No peripheral edema. No lower extremity tenderness. Integumentary: No cyanosis. or jaundice. Neurological: The patient is awake and alert. No focal deficits. Psychiatric: Normal affect. Not anxious appearing. Course Administered Medications Vancomycin HCl 1,000 mg/ (Sodium Chloride) 270 mls @ 125 mls/hr IV NOW STA Stop: 10/07/19 19:59 Last Admin: 10/07/19 19:00 Dose: 125 mls/hr Documented by: [id number] Discontinued Medications Cefepime HCl (Maxipime) 20 mls @ 5 mls/min IV NOW STA Stop: 10/07/19 16:09 Last Admin: 10/07/19 16:42 Dose: 5 mls/min Documented by: [id number] Sodium Chloride (Nss 1000ml) 500 mls @ 999 mls/hr IV .Q31M ONE Stop: 10/07/19 17:52 Last Infusion: 10/07/19 18:13 Dose: 0 mls/hr Documented by: [id number] Admin: 10/07/19 17:44 Dose: 999 mls/hr Documented by: [id number] Critical Care Time Critical Care Time: Yes Total Critical Care Time: 35 I have personally spent approximately 35 minutes of critical care time in the direct management of this patient. This includes bedside care, interpretation of diagnostic studies, and testing, discussion with consultants, patient, and family members, and other required patient management activities. These minutes are in excess of all separately billable procedures. Medical Decision Making Differential Diagnosis Sepsis, gram-negative bacteremia, COVID-19, pneumonia, UTI, pyelonephritis Medical Records Attestation: I reviewed the patient's medical records. The patient was seen yesterday by her PCP for a wellness visit. She was placed on antibiotics based on a urine culture done on September 25 which grew out pansensitive E. coli. Home Medications Current Medication List: was personally reviewed by me Laboratory Data Attestation: I reviewed the patient's lab results. Result diagrams: 10/07/19 16:30 10/07/19 16:30 Lab Results 10/07/19 10/07/19 10/07/19 Range/Units 16:30 16:30 16:30 WBC 2.35 L (4.8-10.8) K/uL RBC 4.06 L (4.2-5.4) M/uL Hgb 13.1 (12.0-16.0) g/dL Hct 39.0 (37-47) % MCV 96.1 (80-100) fL MCH 32.3 (25-34) pg MCHC 33.6 (32-36) g/dL RDW Std Deviation 45.7 (36.4-46.3) fL RDW Coeff of Gunjan 13.0 (11.5-14.5) % Plt Count 141 (130-400) K/uL MPV 10.1 (7.4-10.4) fL Immature Gran % (Auto) 0.0 % Neut % (Auto) 51.5 % Lymph % (Auto) 20.0 % [place] % (Auto) 11.9 % Eos % (Auto) 14.9 % Baso % (Auto) 1.7 % Immature Gran # (Auto) 0.00 (0.00-0.02) K/uL Neut # (Auto) 1.21 L (1.4-6.5) K/uL Lymph # (Auto) 0.47 L (1.2-3.4) K/uL [place] # (Auto) 0.28 (0.11-0.59) K/uL Eos # (Auto) 0.35 (0-0.5) K/uL Baso # (Auto) 0.04 (0-0.2) K/uL PT (9.0-12.0) Seconds INR (0.9-1.1) APTT (21.0-31.0) Seconds PTT Ratio Sodium 134 L (136-145) mmol/L Potassium 3.7 (3.5-5.1) mmol/L Chloride 104 (98-107) mmol/L Carbon Dioxide 23 (21-32) mmol/L Anion Gap 7.0 (3-11) BUN 20 H (7-18) mg/dl Creatinine 1.42 H (0.6-1.2) mg/dl Est Cr Clr Drug Dosing 22.9 ml/min Est GFR ( Amer) 38.9 Est GFR (Non-Af Amer) 33.6 BUN/Creatinine Ratio 14.3 (10-20) Glucose 89 (70-99) mg/dl Lactate 1.6 (0.4-2.0) mmol/L Calcium 8.3 L (8.5-10.1) mg/dl Magnesium 2.3 (1.8-2.4) mg/dl Total Bilirubin 0.2 (0.2-1) mg/dl AST 44 H (15-37) U/L ALT 28 (12-78) U/L Alkaline Phosphatase 123 H (45-117) U/L Total Protein 6.8 (6.4-8.2) gm/dl Albumin 3.3 L (3.4-5.0) gm/dl Globulin 3.5 (2.5-4.0) gm/dl Albumin/Globulin Ratio 0.9 (0.9-2) Procalcitonin (0-0.5) ng/ml COVID-19 PCR (Negative) Influenza Type A (PCR) (Neg) Influenza Type B (PCR) (Neg) 10/07/19 10/07/19 10/07/19 Range/Units 16:30 16:30 16:47 WBC (4.8-10.8) K/uL RBC (4.2-5.4) M/uL Hgb (12.0-16.0) g/dL Hct (37-47) % MCV (80-100) fL MCH (25-34) pg MCHC (32-36) g/dL RDW Std Deviation (36.4-46.3) fL RDW Coeff of Gunjan (11.5-14.5) % Plt Count (130-400) K/uL MPV (7.4-10.4) fL Immature Gran % (Auto) % Neut % (Auto) % Lymph % (Auto) % [place] % (Auto) % Eos % (Auto) % Baso % (Auto) % Immature Gran # (Auto) (0.00-0.02) K/uL Neut # (Auto) (1.4-6.5) K/uL Lymph # (Auto) (1.2-3.4) K/uL [place] # (Auto) (0.11-0.59) K/uL Eos # (Auto) (0-0.5) K/uL Baso # (Auto) (0-0.2) K/uL PT 10.5 (9.0-12.0) Seconds INR 1.0 (0.9-1.1) APTT 47.0 H* (21.0-31.0) Seconds PTT Ratio 1.7 Sodium (136-145) mmol/L Potassium (3.5-5.1) mmol/L Chloride (98-107) mmol/L Carbon Dioxide (21-32) mmol/L Anion Gap (3-11) BUN (7-18) mg/dl Creatinine (0.6-1.2) mg/dl Est Cr Clr Drug Dosing ml/min Est GFR ( Amer) Est GFR (Non-Af Amer) BUN/Creatinine Ratio (10-20) Glucose (70-99) mg/dl Lactate (0.4-2.0) mmol/L Calcium (8.5-10.1) mg/dl Magnesium (1.8-2.4) mg/dl Total Bilirubin (0.2-1) mg/dl AST (15-37) U/L ALT (12-78) U/L Alkaline Phosphatase (45-117) U/L Total Protein (6.4-8.2) gm/dl Albumin (3.4-5.0) gm/dl Globulin (2.5-4.0) gm/dl Albumin/Globulin Ratio (0.9-2) Procalcitonin 0.12 (0-0.5) ng/ml COVID-19 PCR (Negative) Influenza Type A (PCR) Neg for Influ A (Neg) Influenza Type B (PCR) Neg for Influ B (Neg) 10/07/19 Range/Units 16:47 WBC (4.8-10.8) K/uL RBC (4.2-5.4) M/uL Hgb (12.0-16.0) g/dL Hct (37-47) % MCV (80-100) fL MCH (25-34) pg MCHC (32-36) g/dL RDW Std Deviation (36.4-46.3) fL RDW Coeff of Gunjan (11.5-14.5) % Plt Count (130-400) K/uL MPV (7.4-10.4) fL Immature Gran % (Auto) % Neut % (Auto) % Lymph % (Auto) % [place] % (Auto) % Eos % (Auto) % Baso % (Auto) % Immature Gran # (Auto) (0.00-0.02) K/uL Neut # (Auto) (1.4-6.5) K/uL Lymph # (Auto) (1.2-3.4) K/uL [place] # (Auto) (0.11-0.59) K/uL Eos # (Auto) (0-0.5) K/uL Baso # (Auto) (0-0.2) K/uL PT (9.0-12.0) Seconds INR (0.9-1.1) APTT (21.0-31.0) Seconds PTT Ratio Sodium (136-145) mmol/L Potassium (3.5-5.1) mmol/L Chloride (98-107) mmol/L Carbon Dioxide (21-32) mmol/L Anion Gap (3-11) BUN (7-18) mg/dl Creatinine (0.6-1.2) mg/dl Est Cr Clr Drug Dosing ml/min Est GFR ( Amer) Est GFR (Non-Af Amer) BUN/Creatinine Ratio (10-20) Glucose (70-99) mg/dl Lactate (0.4-2.0) mmol/L Calcium (8.5-10.1) mg/dl Magnesium (1.8-2.4) mg/dl Total Bilirubin (0.2-1) mg/dl AST (15-37) U/L ALT (12-78) U/L Alkaline Phosphatase (45-117) U/L Total Protein (6.4-8.2) gm/dl Albumin (3.4-5.0) gm/dl Globulin (2.5-4.0) gm/dl Albumin/Globulin Ratio (0.9-2) Procalcitonin (0-0.5) ng/ml COVID-19 PCR NEGATIVE (Negative) Influenza Type A (PCR) (Neg) Influenza Type B (PCR) (Neg) Imaging Data Radiologist's Impression: XR chest 1V portable CLINICAL HISTORY: Sepsis. COMPARISON STUDY: Chest radiograph and chest CT November 16, 2018. FINDINGS: Lung volumes are normal. Mild right basilar opacity is noted. There is no pneumothorax or pleural effusion. Cardiac size is normal. Mediastinal contours are normal. There is no evidence for pulmonary edema. IMPRESSION: Mild right basilar opacity. Atelectasis is favored over an infectious process. ACT 112: Negative or not required by law. Electronically signed by: Steve Glez M.D. 10/07/2019 5:13 PM ECG Data Attestation: I personally reviewed and interpreted this ECG as follows: Indication: + weakness Rate (beats per minute): 94 Rhythm: + normal sinus ECG Intervals/blocks: no Left bundle branch block ECG ST segments: no ST elevation ECG Findings: no PVCs Blood Pressure Blood Pressure Findings: Normal blood pressure MDM Narrative I did evaluate the patient as noted above. Patient is presenting with generalized weakness and inability to ambulate because of the weakness as well as a high fever of 106 today. She was just recently placed on Bactrim based on a culture that was taken 11 days ago. She has a prior history of UTI and sepsis. She was placed in respiratory isolation. I did order testing for COVID-19 and influenza. IV access was established. I did place an order for continuous cardiac monitoring. The monitor showed sinus tachycardia with a rate of 101. I did order and personally review the patient's 12-lead EKG as described above. She has normal sinus rhythm without any evidence of acute ischemia. I did order and personally reviewed the images of the patient's chest x-ray as described above. There is a right basilar opacity which favors atele ctasis versus infection. I did order a urine analysis. I did treat her with cefepime 2 g IV and vancomycin IV. I did order and review the patient's blood work as noted in the electronic medical record. She has leukopenia. Her BUN and creatinine are elevated. She had a brief episode of hypotension and was given a bolus of normal saline IV. I did not give her excessive fluid boluses due to concern for pulmonary edema. I did discuss the test results with the patient and her daughter. I did discuss case with the hospitalist and lead case manager. Impression & Plan Sepsis, Leukopenia, Right lower lobe pneumonia, Elevated serum creatinine Discharge Plan Visit Data *Final* Discharge Date/Time: 10/07/19 18:36 Chief Complaint: Fever Stated Complaint: FEVER,BEING TREATED FOR UTI ED Provider: Riki Loyola Discharge Problem: Sepsis, Leukopenia, Right lower lobe pneumonia, Elevated serum creatinine Patient Disposition: Admitted As Inpatient Discharge Instructions Interventions: ED Discharge Assessment Last Done: 10/07/19 18:36
[2019-10-07] MEDS ORDERED: CEFEPIME 20 ML IV STA (16:06)
[2019-10-07 17:00] LABS: Basophils # (auto) 0.04 K/uL (0-0.2); Basophils % (auto) 1.7 %; Eosinophils # (auto) 0.35 K/uL (0-0.5); Eosinophils % (auto) 14.9 %; Hemoglobin 13.1 g/dL (12.0-16.0); Lymphocytes # (auto) 0.47 K/uL (1.2-3.4); Mean Corpuscular Hemoglobin 32.3 pg (25-34); Mean Corpuscular Hgb Conc 33.6 g/dL (32-36); Mean Corpuscular Volume 96.1 fL (80-100); Mean Platelet Volume 10.1 fL (7.4-10.4); Monocytes # (auto) 0.28 K/uL (0.11-0.59); Monocytes % (auto) 11.9 %; Neutrophils # (auto) 1.21 K/uL (1.4-6.5); Neutrophils % (auto) 51.5 %; Platelet Count 141 K/uL (130-400); RDW Standard Deviation 45.7 fL (36.4-46.3); Red Blood Count 4.06 M/uL (4.2-5.4); White Blood Count 2.35 K/uL (4.8-10.8)
--- NOTE | 2019-10-07 17:15 | XRay Report ---
XR chest 1V portable CLINICAL HISTORY: Sepsis. COMPARISON STUDY: Chest radiograph and chest CT November 16, 2018. FINDINGS: Lung volumes are normal. Mild right basilar opacity is noted. There is no pneumothorax or p leural effusion. Cardiac size is normal. Mediastinal contours are normal. There is no evidence for pu lmonary edema. IMPRESSION: Mild right basilar opacity. Atelectasis is favored over an infectious process. ACT 112: Negative or not required by law. Electronically signed by: Steve Glez M.D. 10/07/2019 5:13 PM
[2019-10-07 17:17] LABS: Albumin Level 3.3 gm/dl (3.4-5.0); BUN Creatinine Ratio 14.3 (10-20); Calcium 8.3 mg/dl (8.5-10.1); Creatinine Clr Calc Pharmacy 22.9 ml/min; Est GFR (African American) 38.9; Est GFR (Non-African American) 33.6; Magnesium 2.3 mg/dl (1.8-2.4); Potassium 3.7 mmol/L (3.5-5.1)
[2019-10-07 17:20] LABS: Albumin Globulin Ratio 0.9 (0.9-2); Bilirubin,Total 0.2 mg/dl (0.2-1); Globulin 3.5 gm/dl (2.5-4.0); Total Protein 6.8 gm/dl (6.4-8.2)
[2019-10-07] MEDS ORDERED: SODIUM CHLORIDE 0.9% 1000ML 500 ML IV ONE (17:22)
[2019-10-07 17:26] LABS: Partial Thromboplastin Ratio 1.7; Prothrombin Time 10.5 Seconds (9.0-12.0)
[2019-10-07 17:43] LABS: Influenza A virus by PCR Neg for Influ A (Neg); Influenza B virus by PCR Neg for Influ B (Neg)
[2019-10-07] MEDS ORDERED: VANCOMYCIN HCL 1,000 MG in SODIUM CHLORIDE 0.9% 250 ML IV STA (17:50)
--- NOTE | 2019-10-07 18:35 | History & Physical Report ---
Date of Service October 07, 2019 Assessment & Plan (1) Sepsis: admit to pcu Unsure of source, however, given tachycardia, fever from home, and leukpenia, very likely patient has sepsis. Unsure of origen. on vanco and cefepime. blood cultures ordered. UA is negative. Unsure if patient has UTI given normal UA. Doubt pneumonia given x ray appears to show atelectasis. will continue with sepsis protocol. (2) Leukopenia: likely complicating her septic picture. will obtain biofire. covid testing is negative. (3) Insomnia: chronic. will monitor. (4) Peripheral neuropathy: chronic, continue gabapentin (5) Inflammatory arthritis: Patient has history of inflmmatory arthritis. will continue to monitor. (6) Back pain associated with peripheral numbness: chronic, will monitor, may consider tylenol for pain relief. She has been evaluated by neuro surgeon. dvt: heparin code: DNR/DNI (7) Acute kidney failure: CREAT IS ELEVATED. Obtained IVF bolus. will monitor BP and IV status History of Present Illness Chief Complaint: weakness, fever and chills. Primary Care Provider: DIPIKA Davis, MS, [employer]IL[employer]-C 84 yo female arrives to the ER with history of a recent UTI, fever, and chills. She is a poor historian, however her daughter is at bedside. She also has her brother on speaker phone helping to provide history. She was recently diagnosed with a UTI (on 09/26/19) and this was treated. States that patient was her usual state of health, but on of this past week, she had difficlulty ambulating around the house. She also had complaints of subjective fever and chills. Her son states her legs were weak. She slept for the majority of Sunday, and on Sunday, she appeared to be back to her normal self. Sunday, she again felt worse, with genealized wwekaness, and rigors. She denies any cough, diarrehea, nausea, vomiting, dysuira. On sunday, she called her PCP who recommeneded to monitor her. Overnight, she developed a fever, and had a temp of low 100. This was repeated later on Sunday morning (day of admission), and it was 106.1F. Patient's son is not sure if it was some sort of malfunction, but he decided to bring her to the hospital. Allergies Allergy/AdvReac Type Severity Reaction Status Date / Time cefazolin Allergy Unknown RASH Verified 10/06/19 13:13 oxycodone Allergy Unknown hives Verified 10/06/19 13:13 prednisone Allergy Unknown ITCHY Verified 10/06/19 13:13 Home Medications Home Medications Medication Instructions Recorded Confirmed Type witsvdib-dck-PM-lycopen-lutein 1 tab PO QAM 11/01/18 10/07/19 History [Centrum Silver] meloxicam 7.5 mg tablet 7.5 mg PO QAM 12/30/18 10/07/19 History denosumab 60 mg/mL subcutaneous 60 mg SQ .[id number] 07/01/19 10/07/19 History syringe leflunomide 10 mg tablet 10 mg PO QAM 07/01/19 10/07/19 History gabapentin 100 mg capsule 200 mg PO TID #180 cap 07/21/19 10/07/19 Rx aspirin 81 mg tablet,delayed 81 mg PO QAM 10/06/19 10/07/19 History release linaclotide 72 mcg capsule 72 mcg PO QAM #30 cap 10/06/19 10/07/19 Rx furosemide 20 mg PO QAM 10/07/19 10/07/19 History lorazepam 1 mg PO HS PRN 10/07/19 10/07/19 History oxybutynin chloride 5 mg PO QAM 10/07/19 10/07/19 History sulfamethoxazole 800 1 tab PO BID #14 tab 10/07/19 10/07/19 Rx mg-trimethoprim 160 mg tablet tramadol 50 mg PO BID PRN 10/07/19 10/07/19 History Past Med/Surg History Medical History Chest pain (Inactive) Meningioma, spinal Shortness of breath (Inactive) Surgical History H/O lumpectomy History of appendectomy History of cataract surgery History of hysterectomy History of rotator cuff surgery S/P TKR (total knee replacement) Family History Sister Breast cancer Stroke Father Myocardial infarction Daughter Ovarian cancer Mother Stroke Other Family history non-contributory Denies family history of Colon cancer Prostate cancer Social History Preferred Language: Honduran Communication Ability: Effective Beliefs That Will Affect Care: None marital status: Current Living Situation: Alone current occupational status: retired Other Information That Helps Us Care for You: No Feels Safe at Home: Yes Safety Concerns: Feels Safe At This Time Smoking Status: Never smoker Hx Alcohol Use: No Hx Substance Use: No Childhood Exposure to Second-Hand Smoke: Yes Dental Care, Regularly: No Physical Activity Frequency: Does not Exercise Seatbelt Use: always Sunscreen Use: Yes Review of Systems Constitutional: + fever, + chills, + fatigue, + malaise and + weakness; no weight loss Eyes: no blind spots, no diplopia and no discharge Ear, Nose, Mouth, Throat: no ear pain, no ear trauma and no tinnitus Respiratory: no change in sputum and no hemoptysis Cardiovascular: no chest pain Gastrointestinal: no bloating Genitourinary: no urinary frequency and no urinary incontinence Musculoskeletal: + back pain Integumentary: no acne and no rash Neurologic: no falls, no paralysis and no numbness Psychiatric: no hopelessness and no change in appetite Endocrine: no fatigue and no polyphagia Hematologic / Lymphatic: no easy bleeding Physical Exam Constitutional: WD/WN, vitals as above well developed and well nourished Eyes: PERRL, conjunctivae normal, anicteric sclerae ENMT: external ear and nose normal, oropharynx normal Neck: trachea midline, no thyromegaly Respiratory: normal respiratory effort, lungs clear to auscultation Cardiovascular: Rate/Rhythm: regular rhythm and + tachycardic Heart Sounds: normal S1 and normal S2 Gastrointestinal (Abdomen): normal bowel sounds, soft, nontender, no hepatosplenomegaly Neurologic: PERRL, EOMI, accommodation nl, no face palsy, no dysarthria Psychiatric: Orientation: alert Lymphatic: no cervical or axillary lymphadenopathy Results & Data Results & Data ([facility] [place]) Vital Signs (Past 12 Hours) Vital Signs Temp Pulse Pulse Resp BP BP Pulse Ox 10/07/19 18:15 98 H 22 106/51 L 96 10/07/19 16:41 98 H 24 94/58 L 95 10/07/19 15:06 37.1 C 101 H 18 102/62 93 PG Care Time/CCT Total # of Minutes Spent Total Time Spent with Patient: Total time spent is greater than 50% in coordination of care (as documented) at patient's floor/unit and/or counseling patient: Coding Level of Care Code 13476 Initial Inpt Care Lvl 3 Diagnoses Sepsis A41.9 Sepsis acute organ dysfunction status: unspecified Sepsis type: sepsis due to unspecified organism Leukopenia D72.819 Leukopenia type: unspecified Insomnia G47.00 Peripheral neuropathy G62.9 Inflammatory arthritis M19.90 Back pain associated with peripheral numbness M54.9; R20.0 Acute kidney failure N17.9 Time Spent (min) 55 (1) Leukopenia Leukopenia type: unspecified Qualified Code(s): D72.819 - Decreased white blood cell count, unspecified (2) Sepsis Sepsis acute organ dysfunction status: unspecified Sepsis type: sepsis due to unspecified organism Qualified Code(s): A41.9 - Sepsis, unspecified organism
[2019-10-07 18:57] LABS: Appearance Urine Clear (Clear); Bilirubin Urine Negative (Negative); Blood Urine Negative (Negative); Color Urine Yellow; Glucose Urine UA Negative (Negative); Ketones Urine Negative (Negative); Leukocyte Esterase Urine Negative (Negative); Nitrite Urine Negative (Negative); Protein Urine Negative (Negative); Specific Gravity Urine 1.017 (1.000-1.030); Urobilinogen Urine Negative (Negative)
[2019-10-07] MEDS: GABAPENTIN 100 MG CAP PO SCH (20:25)
[2019-10-08] MEDS: LEFLUNOMIDE 10 MG TAB PO SCH (08:20)
[2019-10-08] MEDS: CEROVITE ADV FORMULA TAB PO SCH (08:21)
[2019-10-08] MEDS: ASPIRIN 81 MG ECTAB PO SCH (08:21)
[2019-10-08] MEDS: GABAPENTIN 100 MG CAP PO SCH ×3 (08:21→21:27)
[2019-10-08] MEDS: OXYBUTYNIN CHLORIDE XL 5 MG TABCR PO SCH (08:21)
[2019-10-08] MEDS: ACETAMINOPHEN 325 MG TAB PO PRN ×2 (08:26→14:48)
[2019-10-08] MEDS: HEPARIN SOD 5,000 UNIT/0.5 ML VIAL SQ SCH ×2 (08:27→21:28)
[2019-10-08] MEDS: LACTATED RINGER'S 1,000 ML IV SCH ×2 (10:52→18:01)
[2019-10-08 11:23] LABS: Adenovirus PCR Not Detected (NotDetected); Bordetella parapertussis PCR Not Detected (NotDetected); Bordetella pertussis PCR Not Detected (NotDetected); Chlamydia pneumoniae PCR Not Detected (NotDetected); Coronavirus 229E PCR Not Detected (NotDetected); Coronavirus HKU1 PCR Not Detected (NotDetected); Coronavirus NL63 PCR Not Detected (NotDetected); Coronavirus OC43PCR Not Detected (NotDetected); Human Metapneumovirus PCR Not Detected (NotDetected); Influenza A PCR Not Detected (NotDetected); Influenza B PCR Not Detected (NotDetected); Mycoplasma pneumoniae PCR Not Detected (NotDetected); Parainfluenza Virus 1 PCR Not Detected (NotDetected); Parainfluenza Virus 2 PCR Not Detected (NotDetected); Parainfluenza Virus 3 PCR Not Detected (NotDetected); Parainfluenza Virus 4 PCR Not Detected (NotDetected); Respiratory Syncytial VirusPCR Not Detected (NotDetected); Rhinovirus/Enterovirus PCR Not Detected (NotDetected)
[2019-10-08] MEDS ORDERED: LACTATED RINGER'S 1,000 ML IV ONE ×2 (11:51→13:57)
[2019-10-08 12:10] LABS: Hematocrit (blood only) 35.6 % (37-47); Mean Corpuscular Hemoglobin 32.6 pg (25-34); Mean Corpuscular Hgb Conc 33.7 g/dL (32-36); Mean Corpuscular Volume 96.7 fL (80-100); Mean Platelet Volume 9.7 fL (7.4-10.4); Platelet Count 128 K/uL (130-400); RDW Coefficient of Variation 13.2 % (11.5-14.5); RDW Standard Deviation 46.2 fL (36.4-46.3); Red Blood Count 3.68 M/uL (4.2-5.4); White Blood Count 2.55 K/uL (4.8-10.8)
[2019-10-08 12:38] LABS: Albumin Level 2.6 gm/dl (3.4-5.0); BUN Creatinine Ratio 15.3 (10-20); Calcium 8.2 mg/dl (8.5-10.1); Est GFR (African American) 49.7; Est GFR (Non-African American) 42.9; Potassium 4.2 mmol/L (3.5-5.1)
[2019-10-08 12:45] LABS: Albumin Globulin Ratio 0.9 (0.9-2); Bilirubin,Total 0.3 mg/dl (0.2-1); C Reactive Protein 0.5 mg/dl (0-0.29); Total Protein 5.6 gm/dl (6.4-8.2)
[2019-10-08 13:33] LABS: Basophils # (auto) 0.06 K/uL (0-0.2); Basophils % (auto) 2.4 %; Eosinophils # (auto) 0.34 K/uL (0-0.5); Eosinophils % (auto) 13.3 %; Lymphocytes # (auto) 0.91 K/uL (1.2-3.4); Lymphocytes % (auto) 35.7 %; Monocytes % (auto) 15.7 %; Neutrophils # (auto) 0.84 K/uL (1.4-6.5); Neutrophils % (auto) 32.9 %
[2019-10-08 13:34] LABS: Echinocytes 1+; Giant Platelets 2+
--- NOTE | 2019-10-08 15:18 | Electrocardiogram Report ---
Test Reason : Blood Pressure : / mmHG Vent. Rate : 094 BPM Atrial Rate : 094 BPM P-R Int : 142 ms QRS Dur : 078 ms QT Int : 348 ms P-R-T Axes : 071 062 050 degrees QTc Int : 435 ms Normal sinus rhythm Possible Left atrial enlargement Low voltage QRS Borderline ECG When compared with ECG of 16-NOV-2018 09:04, T wave amplitude has decreased in Anterior leads Confirmed by Hansel Sampson ([id number]) on 10/08/2019 3:17:48 PM Referred By: REFERRED SELF Confirmed By:Felipe Sampson
[2019-10-08] MEDS ORDERED: VANCOMYCIN CONSULT ACTIVE PRN (16:53)
[2019-10-08] MEDS ORDERED: VANCOMYCIN HCL 1,250 MG in SODIUM CHLORIDE 0.9% 250 ML IV SCH (17:30)
[2019-10-08] MEDS: CEFEPIME 1,000 MG in SYRINGE 0 ML IV SCH (18:28)
--- NOTE | 2019-10-08 23:16 | Hospitalist Progress Note ---
Date of Service October 08, 2019 Assessment & Plan (1) Sepsis: admit to pcu Currently she is hypotensive. Will give 2 liter bolus of LR. D/W Intensivisit, will hold off transfer unless blood pressure does not resolve. (Update: BP did imrpve to 100 systolic after bolus. Will continue IV antivbiotics of cefepime and vanco. Checked for adrenal insufficiency: cortisol was at gOAL. Unsure of source of infection : however, given tachycardia, fever from home, and leukpenia, very likely patient has sepsis. blood cultures ordered. UA is negative. Unsure if patient has UTI given normal UA. Doubt pneumonia given x ray appears to show atelectasis. will continue with sepsis protocol. (2) Leukopenia: likely complicating her septic picture. will obtain biofire. covid testing is negative. (3) Insomnia: chronic. will monitor. (4) Peripheral neuropathy: chronic, continue gabapentin (5) Inflammatory arthritis: Patient has history of inflmmatory arthritis. will continue to monitor. (6) Back pain associated with peripheral numbness: chronic, will monitor, may consider tylenol for pain relief. She has been evaluated by neuro surgeon. dvt: heparin code: DNR/DNI (7) Acute kidney failure: creatinine remains elevated will continue to monitor. Admission and Anticipated Discharge Date Admission Date: October 07, 2019 Subjective Patient appears weak. I was called at bedside as her blood pressure was low with systolic in the 70s. Patient though was awake and just complaining of being fatigued. She states she was open to getting a central line if she needed one. Patient denies any SOB, nausea, vomiting, dysuria. Review of Systems Review of Systems: All systems reviewed & are unremarkable except as noted in HPI & below Physical Exam Constitutional: WD/WN, vitals as above well developed and well nourished Eyes: PERRL, conjunctivae normal, anicteric sclerae ENMT: external ear and nose normal, oropharynx normal Neck: trachea midline, no thyromegaly Respiratory: normal respiratory effort, lungs clear to auscultation Cardiovascular: Rate/Rhythm: regular rhythm and + tachycardic Heart Sounds: normal S1 and normal S2 Gastrointestinal (Abdomen): normal bowel sounds, soft, nontender, no hepatosplenomegaly Neurologic: PERRL, EOMI, accommodation nl, no face palsy, no dysarthria Psychiatric: Orientation: alert Lymphatic: no cervical or axillary lymphadenopathy Results & Data Results & Data ([facility]) Vital Signs (Past 12 Hours) Vital Signs Temp Pulse Pulse Resp BP BP Pulse Ox 10/08/19 19:48 36.5 C 79 21 102/60 93 10/08/19 18:10 87 12 106/62 91 10/08/19 15:20 36.3 C L 86 86 18 98/60 L 94 10/08/19 14:50 36.4 C L 88 16 112/66 93 10/08/19 14:00 96/50 L 10/08/19 12:15 91 H 99/60 L 10/08/19 11:28 36.6 C 83 17 77/47 L 92 PG Care Time/CCT Total # of Minutes Spent Total Time Spent with Patient: Total time spent is greater than 50% in coordination of care (as documented) at patient's floor/unit and/or counseling patient: Prolonged Care Time Prolonged Care Time: Yes Total Prolonged Care Time: 70 Coding Level of Care Code 26134 Subseq Hosp Care Lvl 3 Diagnoses Sepsis A41.9 Sepsis acute organ dysfunction status: unspecified Sepsis type: sepsis due to unspecified organism Leukopenia D72.819 Leukopenia type: unspecified Insomnia G47.00 Peripheral neuropathy G62.9 Inflammatory arthritis M19.90 Back pain associated with peripheral numbness M54.9; R20.0 Acute kidney failure N17.9 Additional Codes Prolonged Care Time - Prolonged Care Time: Yes ([id number]) Time Spent (min) 70 Comment 9:20 to 9:40 11:20 to 12:00 18:00 to 18:10 (1) Leukopenia Leukopenia type: unspecified Qualified Code(s): D72.819 - Decreased white blood cell count, unspecified (2) Sepsis Sepsis acute organ dysfunction status: unspecified Sepsis type: sepsis due to unspecified organism Qualified Code(s): A41.9 - Sepsis, unspecified organism
[2019-10-09] MEDS ORDERED: COUGH DROP (SUGAR FREE) LOZ 24 LOZ/1 BOX BUCCAL ONE (00:19)
[2019-10-09 07:44] LABS: Hematocrit (blood only) 36.1 % (37-47); Hemoglobin 12.1 g/dL (12.0-16.0); Mean Corpuscular Hemoglobin 31.6 pg (25-34); Mean Corpuscular Hgb Conc 33.5 g/dL (32-36); Mean Corpuscular Volume 94.3 fL (80-100); Mean Platelet Volume 9.9 fL (7.4-10.4); Platelet Count 120 K/uL (130-400); RDW Coefficient of Variation 13.1 % (11.5-14.5); RDW Standard Deviation 45.2 fL (36.4-46.3); Red Blood Count 3.83 M/uL (4.2-5.4)
[2019-10-09] MEDS: HEPARIN SOD 5,000 UNIT/0.5 ML VIAL SQ SCH ×2 (08:08→21:48)
[2019-10-09] MEDS: GABAPENTIN 100 MG CAP PO SCH ×3 (08:08→21:47)
[2019-10-09] MEDS: OXYBUTYNIN CHLORIDE XL 5 MG TABCR PO SCH (08:09)
[2019-10-09] MEDS: CEROVITE ADV FORMULA TAB PO SCH (08:09)
[2019-10-09] MEDS: ASPIRIN 81 MG ECTAB PO SCH (08:10)
[2019-10-09] MEDS: LEFLUNOMIDE 10 MG TAB PO SCH (08:10)
[2019-10-09 08:11] LABS: BUN Creatinine Ratio 15.8 (10-20); Calcium 8.2 mg/dl (8.5-10.1); Creatinine Clr Calc Pharmacy 44.6 ml/min; Est GFR (Non-African American) 75.1; Magnesium 1.9 mg/dl (1.8-2.4); Potassium 4.1 mmol/L (3.5-5.1)
[2019-10-09] MEDS: LINACLOTIDE 72 MCG CAPSULE PO SCH ×2 (08:11→09:57)
[2019-10-09] MEDS: LIDOCAINE 5% 1 PATCH TD SCH (14:48)
[2019-10-09] MEDS: CEFEPIME 1,000 MG in SYRINGE 0 ML IV SCH (16:04)
--- NOTE | 2019-10-09 17:16 | Electrocardiogram Report ---
Test Reason : Blood Pressure : / mmHG Vent. Rate : 081 BPM Atrial Rate : 081 BPM P-R Int : 136 ms QRS Dur : 084 ms QT Int : 378 ms P-R-T Axes : 079 061 065 degrees QTc Int : 439 ms Normal sinus rhythm Possible Left atrial enlargement Borderline ECG When compared with ECG of 07-OCT-2019 16:40, No significant change was found Confirmed by Hansel Sampson ([id number]) on 10/09/2019 5:16:02 PM Referred By: REFERRED SELF Confirmed By:Felipe Sampson
--- NOTE | 2019-10-09 22:40 | Hospitalist Progress Note ---
Date of Service October 09, 2019 Assessment & Plan (1) Sepsis: admit to pcu Patient has improved, Blood pressure is normal. No longer on IVF. Will continue cefepime. will hold vancomycin. Checked for adrenal insufficiency: cortisol was at GOAL. Unsure of source of infection : however, given tachycardia, fever from home, and leukpenia, very likely patient has sepsis. blood cultures ordered. UA is negative. Unsure if patient has UTI given normal UA. Doubt pneumonia given x ray appears to show atelectasis. will continue with sepsis protocol. (2) Leukopenia: likely complicating her septic picture. Patient is currently neutropenic.w will continue to monitor levels BIOFIRE was negative. covid testing is negative. (3) Insomnia: chronic. will monitor. (4) Peripheral neuropathy: chronic, continue gabapentin (5) Inflammatory arthritis: Patient has history of inflmmatory arthritis. will continue to monitor. (6) Back pain associated with peripheral numbness: chronic, will monitor, may consider tylenol for pain relief. She has been evaluated by neuro surgeon. dvt: heparin code: DNR/DNI (7) Acute kidney failure: creatinine remains elevated will continue to monitor. updated son on the phone Admission and Anticipated Discharge Date Admission Date: October 07, 2019 Subjective Patient reports feeling better. She has no new complaints except for left shoulder pain. She reports pain is sharp and is reproducible. Review of Systems Review of Systems: All systems reviewed & are unremarkable except as noted in HPI & below Physical Exam Constitutional: WD/WN, vitals as above well developed and well nourished Eyes: PERRL, conjunctivae normal, anicteric sclerae ENMT: external ear and nose normal, oropharynx normal Neck: trachea midline, no thyromegaly Respiratory: normal respiratory effort, lungs clear to auscultation Cardiovascular: Rate/Rhythm: regular rhythm and + tachycardic Heart Sounds: normal S1 and normal S2 CHEST PAIN IS REPRODUCTIVE. Gastrointestinal (Abdomen): normal bowel sounds, soft, nontender, no hepatosplenomegaly Neurologic: PERRL, EOMI, accommodation nl, no face palsy, no dysarthria Psychiatric: Orientation: alert Lymphatic: no cervical or axillary lymphadenopathy Results & Data Results & Data ([facility]) Vital Signs (Past 12 Hours) Vital Signs Temp Pulse Resp BP Pulse Ox 10/09/19 20:50 36.6 C 83 18 144/69 H 97 10/09/19 15:41 36.6 C 89 18 122/40 L 94 10/09/19 13:31 83 120/77 99 10/09/19 11:59 36.6 C 89 18 121/72 96 PG Care Time/CCT Total # of Minutes Spent Total Time Spent with Patient: Total time spent is greater than 50% in coordin ation of care (as documented) at patient's floor/unit and/or counseling patient: Coding Level of Care Code 76632 Subseq Hosp Care Lvl 3 Diagnoses Sepsis A41.9 Sepsis acute organ dysfunction status: unspecified Sepsis type: sepsis due to unspecified organism Leukopenia D72.819 Leukopenia type: unspecified Insomnia G47.00 Peripheral neuropathy G62.9 Inflammatory arthritis M19.90 Back pain associated with peripheral numbness M54.9; R20.0 Acute kidney failure N17.9 Time Spent (min) 35 (1) Leukopenia Leukopenia type: unspecified Qualified Code(s): D72.819 - Decreased white blood cell count, unspecified (2) Sepsis Sepsis acute organ dysfunction status: unspecified Sepsis type: sepsis due to unspecified organism Qualified Code(s): A41.9 - Sepsis, unspecified organism
[2019-10-10 01:58] LABS: Hematocrit (blood only) 36.4 % (37-47); Hemoglobin 12.3 g/dL (12.0-16.0); Mean Corpuscular Hemoglobin 31.8 pg (25-34); Mean Corpuscular Hgb Conc 33.8 g/dL (32-36); Mean Corpuscular Volume 94.1 fL (80-100); Mean Platelet Volume 9.7 fL (7.4-10.4); Platelet Count 120 K/uL (130-400); RDW Standard Deviation 44.5 fL (36.4-46.3); Red Blood Count 3.87 M/uL (4.2-5.4); White Blood Count 3.76 K/uL (4.8-10.8)
[2019-10-10 02:16] LABS: BUN Creatinine Ratio 17.8 (10-20); Calcium 8.7 mg/dl (8.5-10.1); Creatinine Clr Calc Pharmacy 50.8 ml/min; Est GFR (African American) 94.3; Est GFR (Non-African American) 81.4; Magnesium 1.9 mg/dl (1.8-2.4); Potassium 3.9 mmol/L (3.5-5.1)
[2019-10-10] MEDS: ASPIRIN 81 MG ECTAB PO SCH (07:54)
[2019-10-10] MEDS: OXYBUTYNIN CHLORIDE XL 5 MG TABCR PO SCH (07:54)
[2019-10-10] MEDS: GABAPENTIN 100 MG CAP PO SCH ×3 (07:55→21:46)
[2019-10-10] MEDS: HEPARIN SOD 5,000 UNIT/0.5 ML VIAL SQ SCH ×2 (07:55→21:47)
[2019-10-10] MEDS: LIDOCAINE 5% 1 PATCH TD SCH (07:55)
[2019-10-10] MEDS: LINACLOTIDE 72 MCG CAPSULE PO SCH (07:56)
[2019-10-10] MEDS: LEFLUNOMIDE 10 MG TAB PO SCH (07:56)
[2019-10-10] MEDS: CEROVITE ADV FORMULA TAB PO SCH (07:56)
[2019-10-10 09:24] LABS: Nucleated RBC # (auto) 0.03 K/uL (0-0); Nucleated RBC % (auto) 0.7 %
[2019-10-10 09:35] LABS: ALC (manual) 1.65 K/uL (1.2-3.4); ANC (manual) 1.88 K/uL (1.4-6.5); Eosinophils # (manual) 0.11 K/uL (0-0.5); Lymphocytes # (manual) 1.65 K/uL (1.2-3.4); Monocytes # (manual) 0.11 K/uL (0.11-0.59); Neutrophils # (manual) 1.88 K/uL (1.4-6.5)
[2019-10-10] MEDS: CEFEPIME 1,000 MG in SYRINGE 0 ML IV SCH (16:20)
--- NOTE | 2019-10-10 22:42 | Hospitalist Progress Note ---
Date of Service October 10, 2019 Assessment & Plan (1) Sepsis: admit to pcu Patient has improved, Blood pressure is normal. No longer on IVF. Will continue cefepime. will hold vancomycin. Checked for adrenal insufficiency: cortisol was at GOAL. Unsure of source of infection : however, given tachycardia, fever from home, and leukpenia, very likely patient has sepsis. Thankfully her vitals have improved. blood cultures ordered: and are negative. UA is negative. Unsure if patient has UTI given normal UA. Doubt pneumonia given x ray appears to show atelectasis. will continue with sepsis protocol. will continue with IV antibiotics at least for 5 days. (2) Leukopenia: likely complicating her septic picture. Patient is currently neutropenic.w will continue to monitor levels BIOFIRE was negative. covid testing is negative. (3) Insomnia: chronic. will monitor. (4) Peripheral neuropathy: chronic, continue gabapentin (5) Inflammatory arthritis: Patient has history of inflmmatory arthritis. will continue to monitor. (6) Back pain associated with peripheral numbness: chronic, will monitor, may consider tylenol for pain relief. She has been evaluated by neuro surgeon. dvt: heparin code: DNR/DNI (7) Acute kidney failure: creatinine remains elevated will continue to monitor. updated son on the phone (8) Delirium due to general medical condition: May be hospital acquired delirium. May consider using seroquel in the evening. May consider transfer out of tele. Will continue to monitor. Family states they have support system at home. Likely exacerbated by lack of visitors. Admission and Anticipated Discharge Date Admission Date: October 07, 2019 Subjective Patient reports she wants to call the police. States she sees people walking around the halls with a stack of papers. She feels "there is something goofy happening". She is unable to verbalize what exactly is wrong though. D/W nurse, patient is removing tele monitor, does not let her do vitals. D/W son, explained patient is confused. Review of Systems Review of Systems: Unobtainable due to cognitive status Physical Exam Constitutional: WD/WN, vitals as above well developed and well nourished Eyes: PERRL, conjunctivae normal, anicteric sclerae ENMT: external ear and nose normal, oropharynx normal Neck: trachea midline, no thyromegaly Respiratory: normal respiratory effort, lungs clear to auscultation Cardiovascular: Rate/Rhythm: regular rhythm and + tachycardic Heart Sounds: normal S1 and normal S2 Gastrointestinal (Abdomen): normal bowel sounds, soft, nontender, no hepatosplenomegaly Neurologic: PERRL, EOMI, accommodation nl, no face palsy, no dysarthria Psychiatric: Orientation: alert; + uncooperative appears paranoid, confused. Lymphatic: no cervical or axillary lymphadenopathy Results & Data Results & Data ([place]) Vital Signs (Past 12 Hours) Vital Signs Temp Pulse Resp BP Pulse Ox 10/10/19 20:12 36.7 C 88 18 133/77 96 10/10/19 15:50 36.7 C 107 H 18 150/89 H 94 PG Care Time/CCT Total # of Minutes Spent Total Time Spent with Patient: Total time spent is greater than 50% in coordination of care (as documented) at patient's floor/unit and/or counseling patient: Coding Level of Care Code 71937 Subseq Hosp Care Lvl 3 Diagnoses Sepsis A41.9 Sepsis acute organ dysfunction status: unspecified Sepsis type: sepsis due to unspecified organism Leukopenia D72.819 Leukopenia type: unspecified Insomnia G47.00 Peripheral neuropathy G62.9 Inflammatory arthritis M19.90 Back pain associated with peripheral numbness M54.9; R20.0 Acute kidney failure N17.9 Delirium due to general medical condition F05 Time Spent (min) 35 (1) Leukopenia Leukopenia type: unspecified Qualified Code(s): D72.819 - Decreased white blood cell count, unspecified (2) Sepsis Sepsis acute organ dysfunction status: unspecified Sepsis type: sepsis due to unspecified organism Qualified Code(s): A41.9 - Sepsis, unspecified organism
[2019-10-11 06:11] LABS: Hematocrit (blood only) 35.8 % (37-47); Mean Corpuscular Hemoglobin 31.3 pg (25-34); Mean Corpuscular Hgb Conc 33.5 g/dL (32-36); Mean Corpuscular Volume 93.5 fL (80-100); Mean Platelet Volume 10.2 fL (7.4-10.4); Platelet Count 120 K/uL (130-400); RDW Coefficient of Variation 12.9 % (11.5-14.5); RDW Standard Deviation 44.3 fL (36.4-46.3); Red Blood Count 3.83 M/uL (4.2-5.4); White Blood Count 3.78 K/uL (4.8-10.8)
[2019-10-11 06:38] LABS: BUN Creatinine Ratio 20.4 (10-20); Calcium 8.4 mg/dl (8.5-10.1); Creatinine Clr Calc Pharmacy 48.9 ml/min; Est GFR (African American) 93.8; Magnesium 2.1 mg/dl (1.8-2.4); Potassium 3.9 mmol/L (3.5-5.1)
[2019-10-11] MEDS: ACETAMINOPHEN 325 MG TAB PO PRN (08:04)
[2019-10-11] MEDS: LIDOCAINE 5% 1 PATCH TD SCH (08:06)
[2019-10-11] MEDS: HEPARIN SOD 5,000 UNIT/0.5 ML VIAL SQ SCH ×2 (08:06→22:35)
[2019-10-11] MEDS: LEFLUNOMIDE 10 MG TAB PO SCH (08:07)
[2019-10-11] MEDS: GABAPENTIN 100 MG CAP PO SCH ×3 (08:08→22:34)
[2019-10-11] MEDS: ASPIRIN 81 MG ECTAB PO SCH (08:08)
[2019-10-11] MEDS: OXYBUTYNIN CHLORIDE XL 5 MG TABCR PO SCH (08:09)
[2019-10-11] MEDS: CEROVITE ADV FORMULA TAB PO SCH (08:09)
[2019-10-11] MEDS: LINACLOTIDE 72 MCG CAPSULE PO SCH (08:32)
[2019-10-11] MEDS: CEFEPIME 1,000 MG in SYRINGE 0 ML IV SCH (16:34)
[2019-10-11] MEDS ORDERED: QUETIAPINE FUMARATE 25 MG TABLET PO SCH (21:00)
--- NOTE | 2019-10-11 22:55 | Hospitalist Progress Note ---
Date of Service October 11, 2019 Assessment & Plan (1) Sepsis: admit to pcu Patient has improved, Blood pressure is normal. Will continue cefepime for at least 5 days. will hold vancomycin. Checked for adrenal insufficiency: cortisol was at GOAL. Unsure of source of infection : however, given tachycardia, fever from home, and leukpenia, very likely patient has sepsis. Thankfully her vitals have improved. blood cultures ordered: and are negative. UA is negative. Unsure if patient has UTI given normal UA. Doubt pneumonia given x ray appears to show atelectasis. will continue with sepsis protocol. Possible discharge tomorrow. (2) Leukopenia: likely complicating her septic picture. Patient is currently neutropenic. will continue to monitor levels BIOFIRE was negative. covid testing is negative. (3) Insomnia: chronic. will monitor. (4) Peripheral neuropathy: chronic, continue gabapentin (5) Inflammatory arthritis: Patient has history of inflmmatory arthritis. will continue to monitor. (6) Back pain associated with peripheral numbness: chronic, will monitor, may consider tylenol for pain relief. She has been evaluated by neuro surgeon. dvt: heparin code: DNR/DNI (7) Acute kidney failure: creatinine remains elevated will continue to monitor. updated son on the phone (8) Delirium due to general medical condition: May be hospital acquired delirium. resolved. Admission and Anticipated Discharge Date Admission Date: October 07, 2019 Subjective 84 yo FEMALE reports feeling better today. She has no new complaints at this time. Review of Systems Review of Systems: All systems reviewed & are unremarkable except as noted in HPI & below Physical Exam Constitutional: WD/WN, vitals as above well developed and well nourished Eyes: PERRL, conjunctivae normal, anicteric sclerae ENMT: external ear and nose normal, oropharynx normal Neck: trachea midline, no thyromegaly Respiratory: normal respiratory effort, lungs clear to auscultation Cardiovascular: Rate/Rhythm: regular rhythm and + tachycardic Heart Sounds: normal S1 and normal S2 Gastrointestinal (Abdomen): normal bowel sounds, soft, nontender, no hepatosplenomegaly Neurologic: PERRL, EOMI, accommodation nl, no face palsy, no dysarthria Psychiatric: Orientation: alert; + uncooperative Lymphatic: no cervical or axillary lymphadenopathy Results & Data Results & Data ([facility]) Vital Signs (Past 12 Hours) Vital Signs Temp Pulse Resp BP Pulse Ox 10/11/19 14:57 36.8 C 84 18 123/74 94 PG Care Time/CCT Total # of Minutes Spent Total Time Spent with Patient: Total time spent is greater than 50% in coordina tion of care (as documented) at patient's floor/unit and/or counseling patient: Coding Level of Care Code 96640 Subseq Hosp Care Lvl 2 Diagnoses Sepsis A41.9 Sepsis acute organ dysfunction status: unspecified Sepsis type: sepsis due to unspecified organism Leukopenia D72.819 Leukopenia type: unspecified Insomnia G47.00 Peripheral neuropathy G62.9 Inflammatory arthritis M19.90 Back pain associated with peripheral numbness M54.9; R20.0 Acute kidney failure N17.9 Delirium due to general medical condition F05 Time Spent (min) 25 (1) Leukopenia Leukopenia type: unspecified Qualified Code(s): D72.819 - Decreased white blood cell count, unspecified (2) Sepsis Sepsis acute organ dysfunction status: unspecified Sepsis type: sepsis due to unspecified organism Qualified Code(s): A41.9 - Sepsis, unspecified organism
[2019-10-12] MEDS: CEROVITE ADV FORMULA TAB PO SCH (08:03)
[2019-10-12] MEDS: ASPIRIN 81 MG ECTAB PO SCH (08:03)
[2019-10-12] MEDS: OXYBUTYNIN CHLORIDE XL 5 MG TABCR PO SCH (08:03)
[2019-10-12] MEDS: GABAPENTIN 100 MG CAP PO SCH ×2 (08:04→13:53)
[2019-10-12] MEDS: LEFLUNOMIDE 10 MG TAB PO SCH (08:04)
[2019-10-12] MEDS: HEPARIN SOD 5,000 UNIT/0.5 ML VIAL SQ SCH (08:04)
[2019-10-12] MEDS: LIDOCAINE 5% 1 PATCH TD SCH (08:05)
[2019-10-12 09:09] LABS: Basophils % (auto) 2.4 %; Eosinophils # (auto) 0.06 K/uL (0-0.5); Eosinophils % (auto) 1.4 %; Hematocrit (blood only) 37.3 % (37-47); Hemoglobin 12.3 g/dL (12.0-16.0); Immature Granulocytes # (auto) 0.01 K/uL (0.00-0.02); Immature Granulocytes % (auto) 0.2 %; Lymphocytes # (auto) 1.49 K/uL (1.2-3.4); Lymphocytes % (auto) 35.1 %; Mean Corpuscular Hemoglobin 31.1 pg (25-34); Mean Corpuscular Volume 94.2 fL (80-100); Mean Platelet Volume 10.1 fL (7.4-10.4); Monocytes # (auto) 0.51 K/uL (0.11-0.59); Neutrophils # (auto) 2.08 K/uL (1.4-6.5); Neutrophils % (auto) 48.9 %; Platelet Count 133 K/uL (130-400); RDW Coefficient of Variation 12.8 % (11.5-14.5); RDW Standard Deviation 44.5 fL (36.4-46.3); Red Blood Count 3.96 M/uL (4.2-5.4); White Blood Count 4.25 K/uL (4.8-10.8)
[2019-10-12 09:32] LABS: BUN Creatinine Ratio 16.3 (10-20); Calcium 8.9 mg/dl (8.5-10.1); Creatinine Clr Calc Pharmacy 48.9 ml/min; Est GFR (African American) 93.8; Potassium 3.6 mmol/L (3.5-5.1)
--- NOTE | 2019-10-19 12:49 | Discharge Summary ---
Date of Service October 12, 2019 Admission HPI Per Admitting Provider 84 yo female arrives to the ER with history of a recent UTI, fever, and chills. She is a poor historian, however her daughter is at bedside. She also has her brother on speaker phone helping to provide history. She was recently diagnosed with a UTI (on 09/26/19) and this was treated. States that patient was her usual state of health, but on of this past week, she had difficlulty ambulating around the house. She also had complaints of subjective fever and chills. Her son states her legs were weak. She slept for the majority of Sunday, and on Sunday, she appeared to be back to her normal self. Sunday, she again felt worse, with genealized wwekaness, and rigors. She denies any cough, diarrehea, nausea, vomiting, dysuira. On sunday, she called her PCP who recommeneded to monitor her. Overnight, she developed a fever, and had a temp of low 100. This was repeated later on Sunday morning (day of admission), and it was 106.1F. Patient's son is not sure if it was some sort of malfunction, but he decided to bring her to the hospital. Principal Diagnosis sepsis Discharge Exam Constitutional: WD/WN, vitals as above well developed and well nourished Eyes: PERRL, conjunctivae normal, anicteric sclerae ENMT: external ear and nose normal, oropharynx normal Neck: trachea midline, no thyromegaly Respiratory: normal respiratory effort, lungs clear to auscultation Cardiovascular: Rate/Rhythm: regular rhythm and + tachycardic Heart Sounds: normal S1 and normal S2 Gastrointestinal (Abdomen): normal bowel sounds, soft, nontender, no hepatosplenomegaly Neurologic: PERRL, EOMI, accommodation nl, no face palsy, no dysarthria Psychiatric: Orientation: alert; + uncooperative Lymphatic: no cervical or axillary lymphadenopathy Discharge Data Allergies Allergy/AdvReac Type Severity Reaction Status Date / Time cefazolin Allergy Unknown RASH Verified 10/16/19 10:52 oxycodone Allergy Unknown hives Verified 10/16/19 10:52 prednisone Allergy Unknown ITCHY Verified 10/16/19 10:52 Consultations 10/07/19 17:32 ED Decision to Admit Stat Hospital Course (1) Sepsis: admit to pcu Patient has improved, Blood pressure is normal. Completed cefepime for 5 days. Checked for adrenal insufficiency: cortisol was at GOAL. Unsure of source of infection : however, given tachycardia, fever from home, and leukpenia, very likely patient had sepsis. Thankfully her vitals have improved. blood cultures ordered: and are negative. UA is negative. Unsure if patient has UTI given normal UA. Doubt pneumonia given x ray appears to show atelectasis. (2) Leukopenia: likely complicating her septic picture. Patient was neutropenic but this improved. will continue to monitor levels BIOFIRE was negative. covid testing is negative. (3) Insomnia: chronic. will monitor. (4) Peripheral neuropathy: chronic, continue gabapentin (5) Inflammatory arthritis: Patient has history of inflmmatory arthritis. will continue to monitor. (6) Back pain associated with peripheral numbness: chronic, will monitor, may consider tylenol for pain relief. She has been evaluated by neuro surgeon. (7) Acute kidney failure: creatinine remains elevated will continue to monitor. updated son on the phone (8) Delirium due to general medical condition: May be hospital acquired delirium. resolved. Total Time Total Time Spent Total Time Spent (In Minutes): 32 Total Time Includes: Examination of the Patient, Discharge Planning and Medication Reconciliation Discharge Plan Discharge Items Patient Disposition: Home - Self-Care Reason For Visit: FEVER,POSSIBLE SEPSIS Discharge Diagnosis: fever possible sepsis Activity: Resume your previous activity Non-emergency contact: Primary Care Provider Call non-emergency contact if: you have any medication questions Follow-up/Referrals: Ivy Horton CRNP, MS, BUILDING INSPECTION ENGINEER-C [Primary Care Provider] - Diet: Regular Addtl Attending Provider Instructions: . Addtl Weapons Officer Provider Instructions: You have been hospitalized for an acute medical problem. During your stay at [facility], we have made an effort to correct the problem that brought you to the hospital while keeping you as comfortable as possible. Medications were used to bring your condition under control and your discharge instructions will include directions for any medications you should take after leaving the hospital. Please make sure you see your Primary Care Provider as part of your follow up plan. You were treated for a possible infection. You required 5 days of IV antibiotics. Will continue antibiotics for 2 more days. Take first dose tonight. Pending Studies at Discharge: No Stand-Alone Forms: My [facility] [place] [employer], Smoking Cessation Medications and DC Order Prescriptions: Continued gabapentin 100 mg capsule 200 mg PO TID Qty: 180 RF: 2 meloxicam 7.5 mg tablet 7.5 mg PO QAM RF: 0 Prolia 60 mg/mL syringe 60 mg SQ .[id number] RF: 0 leflunomide 10 mg tablet 10 mg PO QAM RF: 0 aspirin [Adult Low Dose Aspirin] 81 mg tablet,delayed release (DR/EC) 81 mg PO QAM RF: 0 Linzess 72 mcg capsule 72 mcg PO QAM Qty: 30 RF: 2 Centrum Silver 0.4-300-250 mg-mcg-mcg Tablet 1 tab PO QAM RF: 0 tramadol 50 mg tablet 50 mg PO BID PRN (Reason: Back Pain) RF: 0 oxybutynin chloride 5 mg tablet extended release 24hr 5 mg PO QAM RF: 0 furosemide 20 mg tablet 20 mg PO QAM RF: 0 lorazepam 1 mg tablet 1 mg PO HS PRN (Reason: Sleep) RF: 0 Discontinued sulfamethoxazole-trimethoprim [Bactrim DS] 800-160 mg tablet 1 tab PO BID Qty: 14 RF: 0 Discharge Orders: Discharge Order (Routine); Ordered 10/12/19 Ordered By: Erwin Chirinos Admission Data Admit Date/Time: 10/07/19 18:02 Attending Provider: Erwin Chirinos Admit Provider: Erwin Chirinos Primary Care Provider: Ivy Horton Other Interventions: Discharge Summary Assessment (RN) Last Done: 10/12/19 13:44 DC Date/Time DO NOT enter until pt leaves facility: 10/12/19 14:14 Coding Level of Care Code D/C Day Management >30 mins Diagnoses Sepsis A41.9 Sepsis acute organ dysfunction status: unspecified Sepsis type: sepsis due to unspecified organism Leukopenia D72.819 Leukopenia type: unspecified Insomnia G47.00 Peripheral neuropathy G62.9 Inflammatory arthritis M19.90 Back pain associated with peripheral numbness M54.9; R20.0 Acute kidney failure N17.9 Delirium due to general medical condition F05 Time Spent (min) 35
--- NOTE | 2019-10-20 05:56 | Coding Query ---
CODING QUERY To promote full compliance with coding requirements relating to patient care, provider participation is requested in all cases of dining services director uncertainty. Please assist us with the question(s) below: Coding Question(s): There is documentation in the record and Discharge Summary of "Doubt pneumonia given x ray appears to show atelectasis. It is not clear if Pneumonia was ruled-out or if the patient was treated for Possible Pneumonia. Please clarify below, in your clinical opinion, regarding Pneumonia. (x) Possible Pneumonia was treated ( ) Pneumonia was Ruled-out ( ) Other: Please Specify Physician's Response(s): Thank you Marlene Garner Principal Diagnosis: "that condition established after study, to be chiefly responsible for occasioning the admission of the patient to the hospital for care." Co-Existing Principal Diagnosis: "when two or more diagnoses equally meet the criteria for principal diagnosis as determined by the circumstances of admission, diagnostic work up, and/or therapy provided, and the Alphabetic Index, Tabular List, or another coding guideline does not provide sequencing direction, any one of the diagnoses may be sequenced first." "When the physician has documented what appears to be a current diagnosis in the body of the record, but has not included the diagnosis in the final diagnostic statement, the physician should be asked whether the diagnosis should be added." (Source [facility]oding [facility] 2 QTR90. p3-4) JHONNY
== END 2019-10-12 14:14 | disposition home or self-care (01) | DRG 871 ==
LOC: ED 14:59 → 2S 18:02 → 2N 10-11 10:02

== ENCOUNTER 2023-07-12 11:51 | Inpatient (IN) ==
[2023-07-12 12:23] LABS: Basophils # (auto) 0.06 K/uL (0.00-0.20); Basophils % (auto) 1.1 %; Eosinophils # (auto) 0.19 K/uL (0.00-0.50); Eosinophils % (auto) 3.4 %; Hematocrit (blood only) 38.7 % (37.0-47.0); Hemoglobin 13.1 g/dl (12.0-16.0); Immature Granulocytes # (auto) 0.01 K/uL (0.01-0.20); Immature Granulocytes % (auto) 0.2 %; Lymphocytes # (auto) 1.81 K/uL (1.20-3.40); Lymphocytes % (auto) 32.6 %; Mean Corpuscular Hemoglobin 32.4 pg (25.0-34.0); Mean Corpuscular Hgb Conc 33.9 g/dL (32.0-36.0); Mean Corpuscular Volume 95.8 fL (80.0-100.0); Mean Platelet Volume 10.2 fL (9.4-12.4); Monocytes # (auto) 0.55 K/uL (0.11-0.59); Monocytes % (auto) 9.9 %; Neutrophils # (auto) 2.93 K/uL (1.40-6.50); Neutrophils % (auto) 52.8 %; Platelet Count 221 K/uL (130-400); RDW Coefficient of Variation 12.3 % (11.5-14.5); RDW Standard Deviation 42.5 fL (36.4-46.3); Red Blood Count 4.04 M/uL (4.20-5.40); White Blood Count 5.55 K/ul (4.8-10.8)
[2023-07-12 12:49] LABS: Alanine Aminotransferase 11 U/L (7-52); Albumin Globulin Ratio 1.4 (0.9-2); Albumin Level 4.1 gm/dl (3.4-5.0); Alkaline Phosphatase 77 U/L (34-104); Anion Gap 5 (3-11); Aspartate Aminotransferase 19 U/L (13-39); BUN Creatinine Ratio 24.8 (10-20); Bilirubin,Total 0.4 mg/dl (0.2-1.0); Blood Urea Nitrogen 25 mg/dl (6-23); Calcium 10.1 mg/dl (8.6-10.3); Carbon Dioxide 32 mmol/L (21-32); Chloride 104 mmol/L (98-107); Est GFR (African American) 57.2 ml/min; Est GFR (Non-African American) 49.3 ml/min; Globulin 2.9 gm/dl (2.5-4.0); Glucose 88 mg/dl (70-99(Fasting)); INR 0.9 (0.9-1.1); Magnesium 2.1 mg/dl (1.7-2.4); Partial Thromboplastin Ratio 1.3; Partial Thromboplastin Time 36 Seconds (21-31); Potassium 4.2 mmol/L (3.5-5.1); Sodium 141 mmol/L (136-145)
[2023-07-12 12:53] LABS: Troponin I High Sensitivity 8.7 pg/ml (0-14)
[2023-07-12 13:03] LABS: Thyroid Stimulating Hormone 4.219 uIu/ml (0.300-4.500)
--- NOTE | 2023-07-12 13:17 | Emergency Department Note ---
Impression & Plan Lumbar back pain with radiculopathy affecting lower extremity, Risk for falls, Gait disturbance ED Provider Note NAME: KASHIF ALEXANDER AGE: 88 SEX: F : 1935 ARRIVES VIA: Walk-In INFORMANT: Patient, ED PROVIDER(S): Lynette Farooq MD CHIEF COMPLAINT: Back pain, weakness HPI: This 88-year-old female with history of spinal stenosis, arthritis, neuropathy presenting for back pain/motor weakness. Patient recently had a fall yesterday where she fell onto her bottom. She was unable to get up as result of this. She was helped up by her son. This morning patient was able to get down the stairs but then was unable to stand up due to pain/weakness in her lower extremities. They present here today for further evaluation. No recent change in incontinence, this is a chronic issue. Otherwise no nausea, vomiting, chest pain, shortness of breath. ROS: See above HPI for pertinent positives & negatives. A total of 10 systems reviewed and were otherwise negative. PAST MEDICAL HISTORY: See Below PAST SURGICAL HISTORY: See Below FAMILY HISTORY: See Below SOCIAL HISTORY: See Below HOME MEDICATIONS: See Below ALLERGIES: See Below VITALS: See Below PHYSICAL EXAMINATION: General: resting comfortably in no acute distress Head: Normocephalic and atraumatic Eyes: Normal inspection, extraocular muscles intact Ear, nose, throat: Normal external exam Neck: Normal range of motion Respiratory: lungs clear to auscultation bilaterally Cardiovascular: Regular rate/rhythm, no murmur GI: soft, nontender, no guarding or rebound Back: Lower lumbar tenderness Extremities: nontender, moves all extremities Neuro: The patient awake and alert, appropriately conversive, 2/5 strength in bilateral lower extremities, 2+ pulses Skin: Warm, dry, and intact MEDICAL DECISION MAKING: This is a an 88-year-old female presenting for back pain/motor weakness. Will get CT of the lumbar spine to evaluate for spinal fracture. Also the patient will require admission due to her inability to ambulate at this time. -Blood work reviewed without leukocytosis, no anemia, lab work within normal limits. -Clinically patient. Consistent with cauda equina, no saddle anesthesia, new urinary or bowel incontinence -CT imaging reveals no acute traumatic fracture. Does show chronic stenosis of the spine -Hospital service request MRI prior to admission as we have no orthospine here -ECG independently interpreted by me with normal sinus rhythm, rate of 72, normal [place], normal QRS, normal QTc, no ST segment elevations consistent with STEMI criteria -MRI ordered and completed showing multiple disc bulging. Will be admitted here Differential diagnosis: Lumbar fracture, cauda equina, muscle skeletal injury ER treatment provided: See below Diagnostics interpreted by me: ECG: ECG independently interpreted by me with normal sinus rhythm, rate of 72, normal axis, normal [place], normal QRS, normal QTc, no ST segment elevations consistent with STEMI criteria Cardiac Monitoring: An order was placed for continuous cardiac monitoring. The monitor shows a rate of 85 with sinus rhythm. Laboratory studies: As stated above and show below. Imaging studies: See below. Past Med/Surg History Medical History (Updated 07/12/23 @ 19:38 by [place] Ramos PA-C) Dyslipidemia Osteoporosis Cognitive impairment Degenerative disc disease Lower extremity edema Lumbar back pain with radiculopathy affecting lower extremity Left L1-L2 disc extrusion UTI (urinary tract infection) Fatigue Meningioma, spinal Surgical History H/O lumpectomy History of cataract surgery History of rotator cuff surgery History of appendectomy History of hysterectomy S/P TKR (total knee replacement) Family History Sister Breast cancer Stroke Father Myocardial infarction Daughter Ovarian cancer Mother Stroke Other Family history non-contributory Denies family history of Colon cancer Prostate cancer Social History Smoking Status: Never smoker Second Hand Exposure: Yes; Hx Alcohol Use: No Hx Substance Use: No Preferred Language: Nicaraguan Communication Ability: Effective Visual Impairment: No Limitations Hearing Ability: Hard of Hearing Beliefs That Will Affect Care: None marital status: Current Living Situation: Alone current occupational status: retired Feels Safe at Home: Yes Childhood Exposure to Second-Hand Smoke: Yes Dental Care, Regularly: No Physical Activity Frequency: Does not Exercise Seatbelt Use: always Sunscreen Use: Yes Assistive Devices: Walker Allergies Allergies Allergy/AdvReac Type Severity Reaction Status Date / Time cefazolin Allergy Intermediate RASH Verified 07/12/23 15:31 oxycodone Allergy Intermediate hives Verified 07/12/23 15:31 prednisone Allergy Intermediate ITCHY Verified 07/12/23 15:31 Home Meds Home Medications Medication Instructions Recorded Confirmed denosumab 60 mg/mL subcutaneous 60 mg subcut .[id number] 07/01/19 07/12/23 syringe (Prolia) leflunomide 10 mg tablet 10 mg PO QAM 07/01/19 07/12/23 aspirin 81 mg tablet,delayed 81 mg PO QAM 10/06/19 07/12/23 release (Adult Low Dose Aspirin) bimatoprost 0.01 % eye drops 1 drp ophthalmic (eye) DAILY 07/19/20 07/12/23 (Lumigan) calcium carbonate 600 mg calcium 600 mg PO DAILY 03/07/22 07/12/23 (1,500 mg) tablet (Calcium) cholecalciferol (vitamin D3) 50 50 mcg PO DAILY 03/07/22 07/12/23 mcg (2,000 unit) capsule acetaminophen 500 mg tablet 500 mg PO BID 07/12/23 07/12/23 (Tylenol Extra Strength) cranberry 500 mg capsule 500 mg PO QAM 07/12/23 07/12/23 Previous Rx's Medication Instructions Recorded tramadol 50 mg tablet 50 mg PO BID PRN Back Pain #60 tabs 11/14/22 gabapentin 100 mg capsule See Rx Instructions PO .COMPLEX 05/21/23 #450 caps Results & Data (ED) Vital Signs Vital Signs - 24 hr 07/12/23 11:55 07/12/23 11:59 07/12/23 11:59 Temperature 36.1 C L Temperature Source Temporal Artery Scan Pulse Rate 70 82 Pulse Rhythm Regular Respiratory Rate 20 18 Respiratory Effort / Characteristics Non-Labored Spontaneous Respiratory Depth Normal Blood Pressure 161/75 H Blood Pressure Mean 103 Pulse Oximetry 94 94 Oxygen Delivery Method Room Air Room Air Room Air Sepsis New/Unexplained Change in Mental Status No Sepsis Action Taken by Nursing No Action Required 07/12/23 12:37 07/12/23 17:20 Temperature Temperature Source Pulse Rate 82 85 Pulse Rhythm Respiratory Rate Respiratory Effort / Characteristics Respiratory Depth Blood Pressure Blood Pressure Mean Pulse Oximetry Oxygen Delivery Method Sepsis New/Unexplained Change in Mental Status Sepsis Action Taken by Nursing Laboratory Data 07/12/23 12:08 07/12/23 12:08 Lab Results 07/12/23 07/12/23 Range/Units 12:08 Unknown WBC 5.55 (4.8-10.8) K/ul RBC 4.04 L (4.20-5.40) M/uL Hgb 13.1 (12.0-16.0) g/dl Hct 38.7 (37.0-47.0) % MCV 95.8 (80.0-100.0) fL MCH 32.4 (25.0-34.0) pg MCHC 33.9 (32.0-36.0) g/dL RDW Std Deviation 42.5 (36.4-46.3) fL RDW Coeff of Gunjan 12.3 (11.5-14.5) % Plt Count 221 (130-400) K/uL MPV 10.2 (9.4-12.4) fL Immature Gran % (Auto) 0.2 % Neut % (Auto) 52.8 % Lymph % (Auto) 32.6 % Campbell % (Auto) 9.9 % Eos % (Auto) 3.4 % Baso % (Auto) 1.1 % Neut # (Auto) 2.93 (1.40-6.50) K/uL Lymph # (Auto) 1.81 (1.20-3.40) K/uL Campbell # (Auto) 0.55 (0.11-0.59) K/uL Eos # (Auto) 0.19 (0.00-0.50) K/uL Baso # (Auto) 0.06 (0.00-0.20) K/uL Immature Gran # (Auto) 0.01 (0.01-0.20) K/uL PT 10.0 (9.0-12.0) Seconds INR 0.9 (0.9-1.1) APTT 36 H (21-31) Seconds PTT Ratio 1.3 Sodium 141 (136-145) mmol/L Potassium 4.2 (3.5-5.1) mmol/L Chloride 104 (98-107) mmol/L Carbon Dioxide 32 (21-32) mmol/L Anion Gap 5 (3-11) BUN 25 H (6-23) mg/dl Creatinine 1.01 (0.6-1.2) mg/dl Est Cr Clr Drug Dosing Not Reportable Est GFR ( Amer) 57.2 ml/min Est GFR (Non-Af Amer) 49.3 ml/min BUN/Creatinine Ratio 24.8 H (10-20) Glucose 88 (70-99(Fasting)) mg/dl Calcium 10.1 (8.6-10.3) mg/dl Magnesium 2.1 (1.7-2.4) mg/dl Total Bilirubin 0.4 (0.2-1.0) mg/dl AST 19 (13-39) U/L ALT 11 (7-52) U/L Alkaline Phosphatase 77 (34-104) U/L Troponin I High Sens 8.7 (0-14) pg/ml Total Protein 7.0 (6.0-8.3) gm/dl Albumin 4.1 (3.4-5.0) gm/dl Globulin 2.9 (2.5-4.0) gm/dl Albumin/Globulin Ratio 1.4 (0.9-2) TSH 4.219 (0.300-4.500) uIu/ml Urine Color Yellow Urine Appearance Cloudy A (Clear) Urine pH 8.5 H (4.5-7.5) Ur Specific [place] 1.009 (1.000-1.030) Urine Protein Negative (Negative) Urine Glucose (UA) Negative (Negative) Urine Ketones Negative (Negative) Urine Blood Negative (Negative) Urine Nitrite Positive A (Negative) Urine Bilirubin Negative (Negative) Urine Urobilinogen Negative (Negative) Ur Leukocyte Esterase Negative (Negative) Urine WBC (Auto) 1-5 (0-5) /hpf Urine RBC (Auto) 0-4 (0-4) /hpf U Hyaline Cast (Auto) 0 (0-5) /lpf U Epithel Cells (Auto) 5-10 H (0-5) /lpf Urine Bacteria (Auto) 1+ H (Negative) Administered Medications Discontinued Medications Gadobutrol (Gadobutrol 30ml Vial) 5 ml IV ONCE ONE Stop: 07/12/23 18:45 Last Admin: 07/12/23 18:44 Dose: 5 ml Documented By: ALICE Imaging Data Radiologist's Impression: Chest X-Ray 07/12/23 11:59 XR chest 1V portable HISTORY: Weakness COMPARISON: Chest 10/07/2019. FINDINGS: No pneumothorax. No pleural effusions. Mild chronic interstitial thickening again noted. No new focal lung consolidations to suggest pneumonia. No evidence for pulmonary edema. The cardiac silhouette remains borderline enlarged. There are calcifications within the thoracic aorta. No acute fractures. IMPRESSION: Chronic changes as described above. No acute process within the chest. ACT 112: Negative or not required by law. Electronically signed by: Fran Fatima M.D. 07/12/2023 1:[address] 07/12/23 13:20 CT SCAN OF THE LUMBAR SPINE WITHOUT IV CONTRAST CLINICAL HISTORY: Fall. Low back pain. COMPARISON STUDY: CT scan of the lumbar spine dated 11/16/2018. MRI of the lumbar spine dated 03/28/2022. TECHNIQUE: CT scan of the lumbar spine is performed from the lower thoracic spine to the sacrum. Images are reviewed in the axial, sagittal, and coronal planes. IV contrast was not administered for this examination. A dose lowering technique was utilized adhering to the principles of ALARA. CT DOSE: 774.72 mGy.cm FINDINGS: The skeletal structures are osteopenic. There is no evidence of acute fracture or malalignment involving the lumbar spine. Vertebral body height and alignment are maintained throughout the lumbar spine. Anterior and lateral marginal osteophytes are seen throughout. The transverse and spinous processes are intact. There is no spondylolysis. No lytic or blastic lesion is seen. There is moderate to severe disc space narrowing at all lumbar levels with multilevel endplate sclerosis. Posterior disc osteophyte complexes are seen at all lumbar levels, likely contributing to multilevel acquired compromise of the central canal. Mild facet arthropathy is seen in the lower lumbar region. Visualized portions of the sacrum and pelvis appear intact. There is mild fatty atrophy of the paraspinous musculature. The abdominal aorta is normal in caliber noting moderate atherosclerotic calcification. No retroperitoneal lymphadenopathy is seen. Diverticular disease is partially visualized in the sigmoid colon. IMPRESSION: 1. There is no evidence of fracture or malalignment involving the lumbar spine. 2. Osteopenia and spondylotic change as above. ACT 112: Negative or not required by law. Dictated: 07/12/2023 1:48 PM Transcribed: 07/12/2023 2:01 PM Graciela [id number] ZORAIDA_Chalo [id number] Electronically signed by: Eulalio Green M.D. 07/12/2023 2:19 PM Lumbar Spine MRI 07/12/23 15:13 Exam(s): MRI L SPINE W/WO Contrast IV Amt: 5mL Gadavist given IV EXAM: MR Lumbar Spine Without and With Intravenous Contrast CLINICAL HISTORY: Reason for exam: BL DOMINGA mandujano, monitor for spine compression. TECHNIQUE: Magnetic resonance images of the lumbar spine without and with intravenous contrast in multiple planes. CONTRAST: Patient received 5mL Gadavist given IV of IV contrast COMPARISON: MRI 03/28/[address] 07/12/2023 FINDINGS: No acute fracture. Degenerative related marrow endplate changes with multilevel disc desiccation and diffuse disc bulges. The cord terminates at L1. Normal appearance of the distal cord. No discitis osteomyelitis. No epidural collection. The last well-formed disc space is labeled L5- S1. There is partial lumbarization of S1. Levels numbered using this convention. T12-L1: Diffuse disc bulge. Facet arthropathy. Mild canal stenosis. Moderate bilateral foraminal stenosis. L1-L2: Disc bulge and extrusion causing moderate left lateral recess stenosis. Severe right and moderate left foraminal stenosis. L2-3: Diffuse disc bulge and facet arthropathy. Mild canal stenosis. Mild to moderate bilateral foraminal stenosis. L3-4: Diffuse disc bulge and facet arthropathy. Moderate left lateral recess stenosis. Mild bilateral foraminal stenosis. L4-5: Diffuse disc bulge. Mild canal stenosis. Mild bilateral foraminal stenosis. L5-S1: Diffuse disc bulge and facet arthropathy. Mild right lateral recess stenosis. Severe right and moderate left foraminal stenosis. IMPRESSION: Degenerative spondylosis as described. No acute abnormality. Appearance not significant changed. Electronically signed by: Bao Lombardi MD 07/12/23 19:22 PM Discharge Plan Visit Data Chief Complaint: Referred by Doctor Stated Complaint: PAINS LOWER BACK, UNABLE TO WALK, WEAKNESS ED Provider: Lynette Farooq Discharge Problem: Lumbar back pain with radiculopathy affecting lower extremity, Risk for falls, Gait disturbance Forms Stand Alone Forms: [employer] Prescriptions Prescriptions: No Action tramadol 50 mg tablet 50 mg PO BID PRN (Reason: Back Pain) Qty: 60 0RF Rx Instructions: 1 tablet twice per day as needed for severe back pain gabapentin 100 mg capsule See Rx Instructions PO .COMPLEX Qty: 450 1RF Rx Instructions: Take 200 mg every morning/300 mg every afternoon Prolia 60 mg/mL syringe 60 mg SQ .[id number] leflunomide 10 mg tablet 10 mg PO QAM aspirin [Adult Low Dose Aspirin] 81 mg tablet,delayed release (DR/EC) 81 mg PO QAM Lumigan 0.01 % drops 1 drp ophthalmic (eye) DAILY cholecalciferol (vitamin D3) 50 mcg (2,000 unit) capsule 50 mcg PO DAILY calcium carbonate [Calcium 600] 600 mg calcium (1,500 mg) tablet 600 mg PO DAILY acetaminophen [Tylenol Extra Strength] 500 mg Tablet 500 mg PO BID cranberry 500 mg Capsule 500 mg PO QAM Rx Instructions: administer with meals Referrals Referrals: Hannah Diehl MD [Primary Care Provider] -
--- NOTE | 2023-07-12 13:28 | XRay Report ---
XR chest 1V portable HISTORY: Weakness COMPARISON: Chest 10/07/2019. FINDINGS: No pneumothorax. No pleural effusions. Mild chronic interstitial thickening again noted. No new focal lung consolidations to suggest pneumonia. No evidence for pulmonary edema. The cardiac maninder houette remains borderline enlarged. There are calcifications within the thoracic aorta. No acute fra ctures. IMPRESSION: Chronic changes as described above. No acute process within the chest. ACT 112: Negative or not required by law. Electronically signed by: Fran Fatima M.D. 07/12/2023 1:27 PM
--- NOTE | 2023-07-12 14:21 | CT Scan Report ---
CT SCAN OF THE LUMBAR SPINE WITHOUT IV CONTRAST CLINICAL HISTORY: Fall. Low back pain. COMPARISON STUDY: CT scan of the lumbar spine dated 11/16/2018. MRI of the lumbar spine dated 2. TECHNIQUE: CT scan of the lumbar spine is performed from the lower thoracic spine to the sacrum. Imag es are reviewed in the axial, sagittal, and coronal planes. IV contrast was not administered for this examination. A dose lowering technique was utilized adhering to the principles of ALARA. CT DOSE: 774.72 mGy.cm FINDINGS: The skeletal structures are osteopenic. There is no evidence of acute fracture or malalignm ent involving the lumbar spine. Vertebral body height and alignment are maintained throughout the lum bar spine. Anterior and lateral marginal osteophytes are seen throughout. The transverse and spinous processes are intact. There is no spondylolysis. No lytic or blastic lesion is seen. There is moderat e to severe disc space narrowing at all lumbar levels with multilevel endplate sclerosis. Posterior d isc osteophyte complexes are seen at all lumbar levels, likely contributing to multilevel acquired co mpromise of the central canal. Mild facet arthropathy is seen in the lower lumbar region. Visualized portions of the sacrum and pelvis appear intact. There is mild fatty atrophy of the paraspinous muscu lature. The abdominal aorta is normal in caliber noting moderate atherosclerotic calcification. No re troperitoneal lymphadenopathy is seen. Diverticular disease is partially visualized in the sigmoid co sundeep. IMPRESSION: 1. There is no evidence of fracture or malalignment involving the lumbar spine. 2. Osteopenia and spondylotic change as above. ACT 112: Negative or not required by law. Dictated: 07/12/2023 1:48 PM Transcribed: 07/12/2023 2:01 PM Graciela [id number] ZORAIDA_Chalo [id number] Electronically signed by: Eulalio Green M.D. 07/12/2023 2:19 PM
--- NOTE | 2023-07-12 14:43 | History & Physical Report ---
Date of Service July 12, 2023 Assessment & Plan (1) Lower extremity weakness: Plan: -Admit to med/surge -Presented to the ED with increased BL LE weakness which began earlier this morning after sitting on her walker chair -Did have a fall in her bathroom yesterday while bending down to pick up operator her cat's food dish, did land on her buttocks, did not hit her head or lose consciousness -CT of the lumbar spine and MRI of the lumbar spine w/wo are negative for trauma and acute spinal cord involvement -Has a long hx of lumbar spinal stenosis and RA -New BL LE weakness likely related to increased musculoskeletal pain from her fall yesterday -UA is not overtly consistent with UTI, patient denies current symptoms >Has been afebrile, WBC is WNL >Will hold abx for now >Follow urine culture -Will obtain PT/OT consults, will likely need rehab on discharge -Tylenol and home tramadol for pain -Fall/aspiration precautions -BL SCD's for DVT PPX -HH diet -AM CBC, bmp, mag (2) Cognitive impairment: Plan: -At baseline -Normally oriented to self and hometown -Continue fall precautions (3) Rheumatoid arthritis: Plan: -Continue leflunomide Plan The patient was discussed with History of Present Illness Chief Complaint: Fall, acute on chronic back pain, ambulatory dysfunction Primary Care Provider: Hannah Diehl MD Nelly is an 88 year old female with a PMH significant for lumbar spinal stenosis, rheumatoid arthritis, peripheral neuropathy, and memory loss who presented to the [facility] ED with her son with a chief complaint of a fall yesterday with an inability to ambulate. She was noted to be hypertensive at 161/75 but otherwise stable. Labs including CBC, CMP, and TSH were unremarkable. Chest xray was negative for acute findings. CT of the lumbar spine was negative for acute trauma but does note severe disc space narrowing at all lumbar levels. At the time of the exam the patient was lying in bed in no acute distress with her son sitting bedside, history was mainly obtained from the patient's son. She has a long history of chronic back pain including lumbar stenosis, BL LE peripheral neuropathy, and RA. She did have a fall yesterday afternoon in her bathroom. She was bending down to pick up operator her cat's food dish but slipped and landed on her buttocks. She did not hit her head or lose consciousness. Her son was able to help her stand and she was able to ambulate without issue for the rest of the night. She woke up this am in her normal state of health. She was able to ambulate with her walker as usual. Later in the morning she was using her walker in the kitchen and sat down on the seat of her walker. Since then she has been unable to stand on her own and has little to no strength in her BL LE's. She has incontinence at baseline so they are unsure if this has changed. When asked, the patient states that she has increased pain and paresthesias starting in the mid lumbar spine and going the entire way down both LE's to her feet. She does not believe that she has saddle anesthesia or loss of bowel or bladder function at this time. I explained my concern of possible cord compr ession with these acute, and severe symptoms. We will be getting an MRI of the lumbar spine w/wo con for further assessment. Her who is her POA states that if she were to require emergent surgery they would want her to have that done. We do not currently have a spine surgeon help desk consultant at our facility. If she would be admitted to our facility her son said she has a living will, is a DNR/DNI, and he is her POA. Please refer to Dr. Pickard' attestation for any changes to the treatment Allergies Allergy/AdvReac Type Severity Reaction Status Date / Time cefazolin Allergy Intermediate RASH Verified 07/12/23 15:31 oxycodone Allergy Intermediate hives Verified 07/12/23 15:31 prednisone Allergy Intermediate ITCHY Verified 07/12/23 15:31 Home Medications Medication Instructions Recorded Confirmed Type denosumab 60 mg/mL subcutaneous 60 mg subcut .[id number] 07/01/19 07/12/23 History syringe (Prolia) leflunomide 10 mg tablet 10 mg PO QAM 07/01/19 07/12/23 History aspirin 81 mg tablet,delayed 81 mg PO QAM 10/06/19 07/12/23 History release (Adult Low Dose Aspirin) bimatoprost 0.01 % eye drops 1 drp ophthalmic (eye) DAILY 07/19/20 07/12/23 History (Dustyigan) calcium carbonate 600 mg calcium 600 mg PO DAILY 03/07/22 07/12/23 History (1,500 mg) tablet (Calcium) cholecalciferol (vitamin D3) 50 50 mcg PO DAILY 03/07/22 07/12/23 History mcg (2,000 unit) capsule tramadol 50 mg tablet 50 mg PO BID PRN Back Pain #60 tabs 11/14/22 07/12/23 Rx gabapentin 100 mg capsule See Rx Instructions PO .COMPLEX 05/21/23 07/12/23 Rx #450 caps acetaminophen 500 mg tablet 500 mg PO BID 07/12/23 07/12/23 History (Tylenol Extra Strength) cranberry 500 mg capsule 500 mg PO QAM 07/12/23 07/12/23 History Past Med/Surg History Medical History (Updated 07/12/23 @ 19:38 by Berlin Ramos PA-C) Dyslipidemia Osteoporosis Cognitive impairment Degenerative disc disease Lower extremity edema Lumbar back pain with radiculopathy affecting lower extremity Left L1-L2 disc extrusion UTI (urinary tract infection) Fatigue Meningioma, spinal Surgical History H/O lumpectomy History of cataract surgery History of rotator cuff surgery History of appendectomy History of hysterectomy S/P TKR (total knee replacement) Family History Sister Breast cancer Stroke Father Myocardial infarction Daughter Ovarian cancer Mother Stroke Other Family history non-contributory Denies family history of Colon cancer Prostate cancer Social History Smoking Status: Never smoker Second Hand Exposure: Yes; Hx Alcohol Use: No Hx Substance Use: No Preferred Language: [place]al[place] Communication Ability: Effective Visual Impairment: No Limitations Hearing Ability: Hard of Hearing Beliefs That Will Affect Care: None marital status: Current Living Situation: Alone current occupational status: retired Feels Safe at Home: Yes Childhood Exposure to Second-Hand Smoke: Yes Dental Care, Regularly: No Physical Activity Frequency: Does not Exercise Seatbelt Use: always Sunscreen Use: Yes Assistive Devices: Walker Physical Exam Physical Exam: Physical Exam: General: In no acute distress, stated age, well-nourished, good hygiene HEENT: Normocephalic, atraumatic, no scleral icterus, pupils around round, symmetrical, and reactive to light, moist mucus membranes, trachea midline, no thyromegaly Chest/Pulm: No respiratory distress, symmetrical chest expansion, clear breath sounds throughout Cardiac: RRR, no murmurs noted Abdomen: Negative for ascites and bruising, normoactive bowel sounds, soft, non-tender to palpation throughout Musculoskeletal: No acute trauma on inspection and palpation of the thoracic and lumbar spine, BL hips, knees, and feet >Patient with little to no strength in the BL LE's Extremities: Radial, dorsalis pedis, and posterior tibial pulses are intact and symmetrical, no edema noted in the BL LE's Skin: Warm, dry, no rashes , lesions, or scars noted Neuro: Alert and oriented to person only (this is her baseline per her son), CN II-XII tested and intact, negative cerebellar and pronator drift testing, intact sensation in the BL Lower extremities, patient with 1+ strength in the BL LE's, patient is unable to cooperate with reflex grading of the BL LE's Psych: No acute distress, calm and cooperative during the exam Results & Data Results & Data Vital Signs (Past 12 Hours) Vital Signs Temp Pulse Resp BP Pulse Ox O2 Del Method 07/12/23 12:37 82 07/12/23 11:55 36.1 C L 70 20 161/75 H 94 Room Air Laboratory Results Abnormal lab results 07/12/23 Range/Units 12:08 RBC 4.04 L (4.20-5.40) M/uL APTT 36 H (21-31) Seconds BUN 25 H (6-23) mg/dl BUN/Creatinine Ratio 24.8 H (10-20) Diagnostic Findings Chest X-Ray 07/12/23 11:59 XR chest 1V portable HISTORY: Weakness COMPARISON: Chest 10/07/2019. FINDINGS: No pneumothorax. No pleural effusions. Mild chronic interstitial thickening again noted. No new focal lung consolidations to suggest pneumonia. No evidence for pulmonary edema. The cardiac silhouette remains borderline enlarged. There are calcifications within the thoracic aorta. No acute fractures. IMPRESSION: Chronic changes as described above. No acute process within the chest. ACT 112: Negative or not required by law. Electronically signed by: Fran Fatima M.D. 07/12/2023 1:[address] 07/12/23 13:20 CT SCAN OF THE LUMBAR SPINE WITHOUT IV CONTRAST CLINICAL HISTORY: Fall. Low back pain. COMPARISON STUDY: CT scan of the lumbar spine dated 11/16/2018. MRI of the lumbar spine dated 03/28/2022. TECHNIQUE: CT scan of the lumbar spine is performed from the lower thoracic spin e to the sacrum. Images are reviewed in the axial, sagittal, and coronal planes. IV contrast was not administered for this examination. A dose lowering technique was utilized adhering to the principles of ALARA. CT DOSE: 774.72 mGy.cm FINDINGS: The skeletal structures are osteopenic. There is no evidence of acute fracture or malalignment involving the lumbar spine. Vertebral body height and alignment are maintained throughout the lumbar spine. Anterior and lateral marginal osteophytes are seen throughout. The transverse and spinous processes are intact. There is no spondylolysis. No lytic or blastic lesion is seen. There is moderate to severe disc space narrowing at all lumbar levels with multilevel endplate sclerosis. Posterior disc osteophyte complexes are seen at all lumbar levels, likely contributing to multilevel acquired compromise of the central canal. Mild facet arthropathy is seen in the lower lumbar region. Visualized portions of the sacrum and pelvis appear intact. There is mild fatty atrophy of the paraspinous musculature. The abdominal aorta is normal in caliber noting moderate atherosclerotic calcification. No retroperitoneal lymphadenopathy is seen. Diverticular disease is partially visualized in the sigmoid colon. IMPRESSION: 1. There is no evidence of fracture or malalignment involving the lumbar spine. 2. Osteopenia and spondylotic change as above. ACT 112: Negative or not required by law. Dictated: 07/12/2023 1:48 PM Transcribed: 07/12/2023 2:01 PM Graciela [id number] ZORAIDA_Chalo [id number] Electronically signed by: Eulalio Green M.D. 07/12/2023 2:19 PM ECG Additional Comments: Normal sinus rhythm Normal ECG When compared with ECG of 09-OCT-2019 13:25, No significant change was found Code Status & VTE Plan Code Status DNR/DNI VTE Prophylaxis Plan VTE Prophylaxis will be ordered: Yes Supervising Physician Co-Signing Physician Notes I have personally seen, evaluated and examined the patient. I have also personally discussed the management of the patient with the resident physician/ORLA and I agree with the exam findings documented in the history and physical examination and the documented assessment and plan unless otherwise stated below. Brief Exam: In general this is a 88-year-old female who is alert and oriented x 3 at the time my exam she is accompanied by both her son and daughter at the time my examination. My exam is as documented below and as per the family at the bedside her lower extremity weakness is dramatically improved from earlier today. HEENT: Normocephalic atraumatic. Heart: Regular at this time faint 2 out of 6 systolic ejection murmur appreciated right sternal border. Lungs: Are diminished but clear. Abdomen is flat soft and nontender. Extremities she has 5 out of 5 strength in her upper extremities bilaterally. Lower extremities are weakened bilaterally but symmetrically so. She is able to lift her legs against gravity wanted to time independently she picks her heels up off the bed approximately 6 to 8 inches he is able to hold them there for count of 10. There is no significant edema. Assessment/plan: As discussed above. Please refer to orders for further planning. The patient's had a reassuring MRI of the lumbar spine which is unchanged from previous. Will consult PT and OT. Falls precautions. Social service/case management consultation for possible rehab. According to the patient's son she got out of rehab approximately 6 to 8 weeks ago. After that her strength has been progressively becoming worse but again over the last 24 hours has become significantly worse as documented. PG Care Time/CCT Total # of Minutes Spent Total Time Spent with Patient: Total time spent is greater than 50% in coordination of care (as documented) at patient's floor/unit and/or counseling patient: Coding [place] [address] INT INP/OBS CARE 3/75MIN Patient Type Established Medical Decision Making High Complexity Diagnoses Lower extremity weakness R29.898 Cognitive impairment R41.89 Rheumatoid arthritis M06.9
[2023-07-12] MEDS: GADOBUTROL 30ML VIAL IV ONE (18:44)
--- NOTE | 2023-07-12 19:22 | Magnetic Resonance Report ---
Exam(s): MRI L SPINE W/WO Contrast IV Amt: 5mL Gadavist given IV EXAM: MR Lumbar Spine Without and With Intravenous Contrast CLINICAL HISTORY: Reason for exam: BL DOMINGA mandujano, monitor for spine compression. TECHNIQUE: Magnetic resonance images of the lumbar spine without and with intravenous contrast in multiple planes. CONTRAST: Patient received 5mL Gadavist given IV of IV contrast COMPARISON: MRI 03/28/[address] 07/12/2023 FINDINGS: No acute fracture. Degenerative related marrow endplate changes with multilevel disc desiccation and diffuse disc bulges. The cord terminates at L1. Normal appearance of the distal cord. No discitis osteomyelitis. No epidural collection. The last well-formed disc space is labeled L5- S1. There is partial lumbarization of S1. Levels numbered using this convention. T12-L1: Diffuse disc bulge. Facet arthropathy. Mild canal stenosis. Moderate bilateral foraminal stenosis. L1-L2: Disc bulge and extrusion causing moderate left lateral recess stenosis. Severe right and moderate left foraminal stenosis. L2-3: Diffuse disc bulge and facet arthropathy. Mild canal stenosis. Mild to moderate bilateral foraminal stenosis. L3-4: Diffuse disc bulge and facet arthropathy. Moderate left lateral recess stenosis. Mild bilateral foraminal stenosis. L4-5: Diffuse disc bulge. Mild canal stenosis. Mild bilateral foraminal stenosis. L5-S1: Diffuse disc bulge and facet arthropathy. Mild right lateral recess stenosis. Severe right and moderate left foraminal stenosis. IMPRESSION: Degenerative spondylosis as described. No acute abnormality. Appearance not significant changed. Electronically signed by: Bao Lombardi MD 07/12/23 19:22 PM
[2023-07-12 19:29] LABS: Appearance Urine Cloudy (Clear); Bacteria Urine Automated 1+ (Negative); Bilirubin Urine Negative (Negative); Blood Urine Negative (Negative); Cast Urine Automated 0 /lpf (0-5); Color Urine Yellow; Glucose Urine UA Negative (Negative); Ketones Urine Negative (Negative); Leukocyte Esterase Urine Negative (Negative); Nitrite Urine Positive (Negative); Protein Urine Negative (Negative); RBC Urine Automated 0-4 /hpf (0-4); Specific Gravity Urine 1.009 (1.000-1.030); Urobilinogen Urine Negative (Negative); pH Urine 8.5 (4.5-7.5)
[2023-07-12] MEDS: ACETAMINOPHEN 500 MG TAB PO STA (19:47)
[2023-07-12] MEDS ORDERED: traMADol HCL 50 MG TABLET PO PRN (21:15)
[2023-07-12] MEDS ORDERED: ACETAMINOPHEN 325 MG TAB PO PRN (21:15)
[2023-07-12] MEDS: ACETAMINOPHEN 500 MG TAB PO SCH (22:12)
[2023-07-13 07:38] LABS: Hematocrit (blood only) 37.8 % (37.0-47.0); Hemoglobin 12.5 g/dl (12.0-16.0); Mean Corpuscular Hemoglobin 31.9 pg (25.0-34.0); Mean Corpuscular Hgb Conc 33.1 g/dL (32.0-36.0); Mean Corpuscular Volume 96.4 fL (80.0-100.0); Mean Platelet Volume 10.3 fL (9.4-12.4); Platelet Count 224 K/uL (130-400); RDW Coefficient of Variation 12.2 % (11.5-14.5); RDW Standard Deviation 42.9 fL (36.4-46.3); Red Blood Count 3.92 M/uL (4.20-5.40); White Blood Count 5.66 K/ul (4.8-10.8)
[2023-07-13] MEDS: ASPIRIN 81 MG ECTAB PO SCH (07:44)
[2023-07-13] MEDS: LEFLUNOMIDE 10 MG TAB PO SCH (07:45)
[2023-07-13] MEDS: GABAPENTIN 100 MG CAP PO SCH (07:45)
[2023-07-13] MEDS ORDERED: traMADol HCL 50 MG TABLET PO PRN (08:04)
[2023-07-13 08:05] LABS: BUN Creatinine Ratio 21.1 (10-20); Calcium 9.3 mg/dl (8.6-10.3); Creatinine Clr Calc Pharmacy 50.9 ml/min; Est GFR (African American) 61.5 ml/min; Est GFR (Non-African American) 53.1 ml/min; Potassium 3.7 mmol/L (3.5-5.1)
[2023-07-13] MEDS: HEPARIN SOD 5,000 UNIT/0.5 ML VIAL SQ SCH (09:09)
[2023-07-13] MEDS: GABAPENTIN 300 MG CAP PO SCH (11:40)
--- NOTE | 2023-07-13 11:53 | Electrocardiogram Report ---
Test Reason : Blood Pressure : / mmHG Vent. Rate : 072 BPM Atrial Rate : 072 BPM P-R Int : 128 ms QRS Dur : 082 ms QT Int : 404 ms P-R-T Axes : 054 035 054 degrees QTc Int : 442 ms Normal sinus rhythm Normal ECG When compared with ECG of 09-OCT-2019 13:25, No significant change was found Confirmed by Hansel Sampson ([id number]) on 07/13/2023 11:53:10 AM Referred By: REFERRED SELF Confirmed By:Felipe Sampson
--- NOTE | 2023-07-13 13:08 | Hospitalist Progress Note ---
Date of Service July 13, 2023 Assessment & Plan (1) Lower extremity weakness: Plan: Lumbar MRI scan reveals age-related changes. No indication for any surgical intervention. Await OT and PT assessments. Supportive care. (2) Cognitive impairment: Plan: Supportive care. (3) Rheumatoid arthritis: Plan: Stable. Continue leflunomide Plan To be determined Admission and Anticipated Discharge Date Admission Date: July 12, 2023 Subjective Alert and pleasant. Awaiting OT and PT evaluations. MRI scan of the lumbar spine is consistent with age-related findings. No urgent surgical findings noted. Heparin subcu has been added. OT and PT are ordered daily. Review of Systems 2 Review of Systems: Constitutional-no fever or chills ENT-no blurred vision, no double vision, no epistaxis, no sore throat Respiratory-no cough, no wheezing, no shortness of breath Cardiac-no palpitations, no chest pain, no syncope GI-no nausea, vomiting, diarrhea, melena, hematochezia -no urinary retention, no urinary incontinence, no dysuria, no hematuria Musculoskeletal-no joint pain, no muscle tenderness. Bilateral lower extremity weakness with inability to ambulate Skin-no bruising, no rashes, no pruritus Neuro-bilateral lower extremity symmetrical weakness with inability to ambulate Psych -no depression, no anxiety Physical Exam 2 Physical Exam: General-alert and oriented x3, no fevers, no chills HEENT-head atraumatic and normocephalic, pupils equal and reactive to light, extraocular muscles intact Neck-no lymphadenopathy or thyromegaly, trachea midline Chest-clear to auscultation. No rales, wheezing or rhonchi Cardiac-regular rate and rhythm, normal S1 and S2 Abdomen-normal bowel sounds, nontender, no hepatosplenomegaly Extremities-no cyanosis, clubbing, or edema Neuro-cranial nerves II through XII intact, motor and sensory function within normal limits, strength symmetrical with generalized weakness, no focal deficits Psych-normal affect, normal mood Results & Data Results & Data Vital Signs (Past 12 Hours) Vital Signs Temp Pulse Resp BP Pulse Ox O2 Del Method 07/13/23 11:42 36.8 C 79 16 130/86 96 Room Air 07/13/23 08:00 Room Air 07/13/23 07:50 36.6 C 87 14 146/82 H 94 Room Air Laboratory Results 07/13/23 06:52 07/13/23 06:52 PG Care Time/CCT Total # of Minutes Spent Total Time Spent with Patient: Total time spent is greater than 50% in coordination of care (as documented) at patient's floor/unit and/or counseling patient: Coding Level of Care Code 63979 SUB INP/OBS CARE 3/50MIN Diagnoses Lower extremity weakness R29.898 Cognitive impairment R41.89 Rheumatoid arthritis M06.9
[2023-07-13] MEDS: BIMATOPROST 0.01% OP SOLN 2.5 ML BTL OP SCH (14:13)
[2023-07-13] MEDS: CIPROFLOXACIN / D5W 400 MG/200 ML BAG IV SCH (21:01)
[2023-07-14] MEDS ORDERED: PHENAZOPYRIDINE HCL 100 MG TAB PO PRN (01:59)
[2023-07-14 06:10] LABS: Hematocrit (blood only) 38.6 % (37.0-47.0); Hemoglobin 13.4 g/dl (12.0-16.0); Mean Corpuscular Hemoglobin 32.6 pg (25.0-34.0); Mean Corpuscular Hgb Conc 34.7 g/dL (32.0-36.0); Mean Corpuscular Volume 93.9 fL (80.0-100.0); Mean Platelet Volume 10.1 fL (9.4-12.4); Platelet Count 236 K/uL (130-400); RDW Coefficient of Variation 12.1 % (11.5-14.5); RDW Standard Deviation 41.9 fL (36.4-46.3); Red Blood Count 4.11 M/uL (4.20-5.40); White Blood Count 6.71 K/ul (4.8-10.8)
[2023-07-14 06:28] LABS: BUN Creatinine Ratio 22.8 (10-20); Calcium 9.1 mg/dl (8.6-10.3); Creatinine Clr Calc Pharmacy 47.8 ml/min; Est GFR (African American) 57.2 ml/min; Est GFR (Non-African American) 49.3 ml/min; Potassium 3.7 mmol/L (3.5-5.1)
--- NOTE | 2023-07-14 11:34 | Hospitalist Progress Note ---
Date of Service July 14, 2023 Assessment & Plan (1) Urinary tract infection: Plan: Pansensitive E. coli isolated. She is on intravenous Cipro, day 2. Unfortunately, blood cultures were not obtained on admission. (2) Lower extremity weakness: Plan: Lumbar MRI scan reveals age-related changes. No indication for any surgical intervention. Weakness is probably related to urinary tract infection. OT and PT both recommend rehab placement at discharge. Supportive care. (3) Cognitive impairment: Plan: Supportive care. She is at her baseline (4) Rheumatoid arthritis: Plan: Stable. Continue leflunomide (5) Lethargy: Plan: Mild. Appears to be due to gabapentin. She states she does not take gabapentin at home. This has been discontinued today, July 13 Plan OT and PT recommend IPR placement at discharge which can occur July 15. Admission and Anticipated Discharge Date Admission Date: July 12, 2023 Subjective Alert and oriented. She is somewhat drowsy from the gabapentin which she states she does not take at home. This has been discontinued. E. coli isolated in the urine, pansensitive. Unfortunately, blood cultures were not obtained on admission. She remains on Cipro, day 2. OT and PT both recommend rehab placement. Review of Systems 2 Review of Systems: Constitutional-no fever or chills ENT-no blurred vision, no double vision, no epistaxis, no sore throat Respiratory-no cough, no wheezing, no shortness of breath Cardiac-no palpitations, no chest pain, no syncope GI-no nausea, vomiting, diarrhea, melena, hematochezia -no urinary retention, no urinary incontinence, no dysuria, no hematuria Musculoskeletal-no joint pain, no muscle tenderness. Bilateral lower extremity weakness with inability to ambulate Skin-no bruising, no rashes, no pruritus Neuro-bilateral lower extremity symmetrical weakness with inability to ambulate Psych -no depression, no anxiety Physical Exam 2 Physical Exam: General-alert and oriented x3, no fevers, no chills HEENT-head atraumatic and normocephalic, pupils equal and reactive to light, extraocular muscles intact Neck-no lymphadenopathy or thyromegaly, trachea midline Chest-clear to auscultation. No rales, wheezing or rhonchi Cardiac-regular rate and rhythm, normal S1 and S2 Abdomen-normal bowel sounds, nontender, no hepatosplenomegaly Extremities-no cyanosis, clubbing, or edema Neuro-cranial nerves II through XII intact, motor and sensory function within normal limits, strength symmetrical with generalized weakness, no focal deficits Psych-normal affect, normal mood Results & Data Results & Data Vital Signs (Past 12 Hours) Vital Signs Temp Pulse Pulse Resp BP Pulse Ox O2 Del Method 07/14/23 10:03 72 07/14/23 07:42 36.5 C 96 H 16 131/77 93 Room Air Laboratory Results 07/14/23 05:45 07/14/23 05:45 PG Care Time/CCT Total # of Minutes Spent Total Time Spent with Patient: Total time spent is greater than 50% in coordination of care (as documented) at patient's floor/unit and/or counseling patient: Coding Level of Care Code 19381 SUB INP/OBS CARE 3/50MIN Diagnoses Urinary tract infection N39.0 Lower extremity weakness R29.898 Cognitive impairment R41.89 Rheumatoid arthritis M06.9 Lethargy R53.83
[2023-07-14] MEDS: PHENAZOPYRIDINE HCL 100 MG TAB PO SCH (13:44)
[2023-07-14] MEDS: GABAPENTIN 300 MG CAP PO SCH (20:41)
[2023-07-14] MEDS: MELATONIN 3 MG TAB PO PRN (20:42)
[2023-07-15 06:24] LABS: Hematocrit (blood only) 38.7 % (37.0-47.0); Hemoglobin 12.9 g/dl (12.0-16.0); Mean Corpuscular Hemoglobin 32.1 pg (25.0-34.0); Mean Corpuscular Hgb Conc 33.3 g/dL (32.0-36.0); Mean Corpuscular Volume 96.3 fL (80.0-100.0); Mean Platelet Volume 10.3 fL (9.4-12.4); Platelet Count 228 K/uL (130-400); RDW Coefficient of Variation 12.3 % (11.5-14.5); Red Blood Count 4.02 M/uL (4.20-5.40); White Blood Count 5.33 K/ul (4.8-10.8)
[2023-07-15 06:45] LABS: BUN Creatinine Ratio 19.4 (10-20); Calcium 9.1 mg/dl (8.6-10.3); Creatinine Clr Calc Pharmacy 44.7 ml/min; Est GFR (African American) 52.7 ml/min; Est GFR (Non-African American) 45.5 ml/min; Potassium 3.8 mmol/L (3.5-5.1)
[2023-07-15] MEDS: GABAPENTIN 100 MG CAP PO SCH (08:39)
--- NOTE | 2023-07-15 11:16 | Hospitalist Progress Note ---
Date of Service July 15, 2023 Assessment & Plan (1) Urinary tract infection: Plan: Pansensitive E. coli isolated. She is on intravenous Cipro, day 3. Unfortunately, blood cultures were not obtained on admission. (2) Lower extremity weakness: Plan: Lumbar MRI scan reveals age-related changes. No indication for any surgical intervention. Weakness is probably related to urinary tract infection. OT and PT both recommend rehab placement at discharge. Supportive care. (3) Cognitive impairment: Plan: Supportive care. She is at her baseline (4) Rheumatoid arthritis: Plan: Stable. Continue leflunomide (5) Lethargy: Plan: Mild. Appears to be due to gabapentin. She states she does not take gabapentin at home. This has been discontinued today, July 13 Plan OT and PT recommend IPR placement at discharge which can occur July 15. Admission and Anticipated Discharge Date Admission Date: July 12, 2023 Subjective Alert. Stable vital signs. No new problems. Day 3 of intravenous Cipro for the E. coli UTI. Rehab placement is pending. Review of Systems 2 Review of Systems: Constitutional-no fever or chills ENT-no blurred vision, no double vision, no epistaxis, no sore throat Respiratory-no cough, no wheezing, no shortness of breath Cardiac-no palpitations, no chest pain, no syncope GI-no nausea, vomiting, diarrhea, melena, hematochezia -no urinary retention, no urinary incontinence, no dysuria, no hematuria Musculoskeletal-no joint pain, no muscle tenderness. Bilateral lower extremity weakness with inability to ambulate Skin-no bruising, no rashes, no pruritus Neuro-bilateral lower extremity symmetrical weakness with inability to ambulate Psych -no depression, no anxiety Physical Exam 2 Physical Exam: General-alert and oriented x3, no fevers, no chills HEENT-head atraumatic and normocephalic, pupils equal and reactive to light, extraocular muscles intact Neck-no lymphadenopathy or thyromegaly, trachea midline Chest-clear to auscultation. No rales, wheezing or rhonchi Cardiac-regular rate and rhythm, normal S1 and S2 Abdomen-normal bowel sounds, nontender, no hepatosplenomegaly Extremities-no cyanosis, clubbing, or edema Neuro-cranial nerves II through XII intact, motor and sensory function within normal limits, strength symmetrical with generalized weakness, no focal deficits Psych-normal affect, normal mood Results & Data Results & Data Vital Signs (Past 12 Hours) Vital Signs Temp Pulse Resp BP Pulse Ox O2 Del Method 07/15/23 07:57 36.4 C L 87 16 123/66 94 Room Air Laboratory Results 07/15/23 05:47 07/15/23 05:47 PG Care Time/CCT Total # of Minutes Spent Total Time Spent with Patient: Total time spent is greater than 50% in coordination of care (as documented) at patient's floor/unit and/or counseling patient: Coding Level of Care Code 18984 SUB INP/OBS CARE 2/35MIN Diagnoses Urinary tract infection N39.0 Lower extremity weakness R29.898 Cognitive impairment R41.89 Rheumatoid arthritis M06.9 Lethargy R53.83
[2023-07-15] MEDS ORDERED: CIPROFLOXACIN 500 MG TAB PO SCH (23:11)
[2023-07-15] MEDS: CIPROFLOXACIN 500 MG TAB PO STA (23:41)
[2023-07-16] MEDS: CIPROFLOXACIN 500 MG TAB PO SCH (08:26)
[2023-07-16] MEDS ORDERED: CIPROFLOXACIN 500 MG TAB PO SCH (09:00)
[2023-07-16] MEDS: DOCUSATE SODIUM 100 MG CAP PO SCH (12:55)
[2023-07-16] MEDS: POLYETHYLENE (MIRALAX) 17 GM PACK PO SCH (12:55)
--- NOTE | 2023-07-16 16:00 | Hospitalist Progress Note ---
Date of Service July 16, 2023 Assessment & Plan (1) Urinary tract infection: Plan: Pansensitive E. coli isolated. Was on IV Cipro and converted to p.o. Cipro to finish out 7-day course Unfortunately, blood cultures were not obtained on admission but no evidence of sepsis Only symptom really was worsening generalized weakness especially in the lower extremities and fatigue Chronic constipation exacerbating-start daily MiraLAX and docusate (2) Lower extremity weakness: Plan: Lumbar MRI scan reveals age-related changes. CT lumbar spine negative for fracture, shows osteopenia and spondylitic change-no indication for any surgical intervention. Weakness is probably related to urinary tract infection. OT and PT both recommend rehab placement at discharge. Supportive care. (3) Cognitive impairment: Plan: Supportive care. She is at her baseline (4) Rheumatoid arthritis: Plan: Stable. Will now hold leflunomide until treatment for UTI completed (5) Lethargy: Plan: Mild. Possibly from UTI but also could be due to gabapentin-will lower the dose to 100 mg in the morning and keep the 300 mg dose at night Plan DVT prophylaxis-heparin SQ Disposition-medically stable for discharge, awaiting bed at rehab-referral made to [facility] in [place] I discussed her care with her daughter at the bedside on 07/15. I also discussed her care with the cyanide case hardener Admission and Anticipated Discharge Date Admission Date: July 12, 2023 Subjective Patient feeling tired but better than on admission. She was constipated today and took prune juice and MiraLAX and had a bowel movement later in the day. Den ies abdominal pain. She is eating and drinking, no other concerns. Awaiting placement Physical Exam Constitutional: WD/WN, vitals as above Respiratory: normal respiratory effort, lungs clear to auscultation Cardiovascular: RRR, no murmur, no edema Gastrointestinal (Abdomen): normal bowel sounds, soft, nontender, no hepatosplenomegaly Results & Data Results & Data Vital Signs (Past 12 Hours) Vital Signs Temp Pulse Resp BP Pulse Ox O2 Del Method 07/16/23 14:59 36.5 C 79 16 104/65 93 Room Air 07/16/23 07:45 36.4 C L 94 H 16 145/68 H 96 Room Air PG Care Time/CCT Total # of Minutes Spent Total Time Spent with Patient: Total time spent is greater than 50% in coordination of care (as documented) at patient's floor/unit and/or counseling patient: Coding Level of Care Code 04025 SUB INP/OBS CARE 235MIN Diagnoses Urinary tract infection N39.0 Lower extremity weakness R29.898 Cognitive impairment R41.89 Rheumatoid arthritis M06.9 Lethargy R53.83
[2023-07-17] MEDS: GABAPENTIN 100 MG CAP PO SCH (09:09)
--- NOTE | 2023-07-17 16:31 | Hospitalist Progress Note ---
Date of Service July 17, 2023 Assessment & Plan (1) Urinary tract infection: Plan: Pansensitive E. coli isolated. Was on IV Cipro and converted to p.o. Cipro to finish out 7-day course on 07/18 for total of 7 days Unfortunately, blood cultures were not obtained on admission but no evidence of sepsis Only symptom really was worsening generalized weakness especially in the lower extremities and fatigue Chronic constipation exacerbating-started daily MiraLAX and docusate-improved (2) Lower extremity weakness: Plan: Lumbar MRI scan reveals age-related changes. CT lumbar spine negative for frac ture, shows osteopenia and spondylitic change-no indication for any surgical intervention. Weakness is probably related to urinary tract infection. OT and PT both recommend rehab placement at discharge. Supportive care. (3) Cognitive impairment: Plan: Supportive care. She is at her baseline (4) Rheumatoid arthritis: Plan: Stable. Will now hold leflunomide until treatment for UTI completed (5) Lethargy: Plan: Mild. Possibly from UTI but also could be due to gabapentin-lowered the dose to 100 mg in the morning and keep the 300 mg dose at night Plan DVT prophylaxis-heparin SQ Disposition-medically stable for discharge, awaiting bed at rehab-referral made to [facility] in [place] and plan for discharge on 07/17 I discussed her care with her daughter at the bedside on 07/15 and 07/16. I also discussed her care with the returned case inspector Admission and Anticipated Discharge Date Admission Date: July 12, 2023 Anticipated date of discharge: 07/18/23 Subjective Pt has no complaints other than weakness in her legs. No abd pain, no nausea, no CP, no lightheadedness. Is eating. Moved her bowels yesterday Physical Exam Constitutional: WD/WN, vitals as above Respiratory: normal respiratory effort, lungs clear to auscultation Cardiovascular: RRR, no murmur, no edema Gastrointestinal (Abdomen): normal bowel sounds, soft, nontender, no hepatosplenomegaly Results & Data Results & Data Vital Signs (Past 12 Hours) Vital Signs Temp Pulse Resp BP Pulse Ox O2 Del Method 07/17/23 14:27 36.7 C 88 16 111/67 93 Room Air 07/17/23 13:22 89 119/67 07/17/23 07:44 36.5 C 114 H 16 173/91 H 94 Room Air PG Care Time/CCT Total # of Minutes Spent Total Time Spent with Patient: Total time spent is greater than 50% in coordination of care (as documented) at patient's floor/unit and/or counseling patient: Coding Level of Care Code 53207 SUB INP/OBS CARE 1/25MIN Diagnoses Urinary tract infection N39.0 Lower extremity weakness R29.898 Cognitive impairment R41.89 Rheumatoid arthritis M06.9 Lethargy R53.83
[2023-07-17] MEDS: ARTIFICIAL TEARS OPB PRN (21:48)
--- NOTE | 2023-07-18 11:59 | Discharge Summary ---
Discharge Summary Date of Service July 18, 2023 Notes For Next Care Provider Medication Changes From Visit Hold leflunomide until 07/19 while treating for UTI Cipro 500mg po bid x 3 more doses Decreased gabapentin dose to 300mg po hs (discontinued AM dose) Admission HPI Per Admitting Provider Nelly is an 88 year old female with a PMH significant for lumbar spinal stenosis, rheumatoid arthritis, peripheral neuropathy, and memory loss who presented to the [facility] ED with her son with a chief complaint of a fall yesterday with an inability to ambulate. She was noted to be hypertensive at 161/75 but otherwise stable. Labs including CBC, CMP, and TSH were unremarkable. Chest xray was negative for acute findings. CT of the lumbar spine was negative for acute trauma but does note severe disc space narrowing at all lumbar levels. At the time of the exam the patient was lying in bed in no acute distress with her son sitting bedside, history was mainly obtained from the patient's son. She has a long history of chronic back pain including lumbar stenosis, BL LE peripheral neuropathy, and RA. She did have a fall yesterday afternoon in her bathroom. She was bending down to pick up driver her cat's food dish but slipped and landed on her buttocks. She did not hit her head or lose consciousness. Her son was able to help her stand and she was able to ambulate without issue for the rest of the night. She woke up this am in her normal state of health. She was able to ambulate with her walker as usual. Later in the morning she was using her walker in the kitchen and sat down on the seat of her walker. Since then she has been unable to stand on her own and has little to no strength in her BL LE's. She has incontinence at baseline so they are unsure if this has changed. When asked, the patient states that she has increased pain and paresthesias starting in the mid lumbar spine and going the entire way down both LE's to her feet. She does not believe that she has saddle anesthesia or loss of bowel or bladder function at this time. I explained my concern of possible cord compression with these acute, and severe symptoms. We will be getting an MRI of the lumbar spine w/wo con for further assessment. Her who is her POA states that if she were to require emergent surgery they would want her to have that done. We do not currently have a spine surgeon press operator carbon blocks at our facility. If she would be admitted to our facility her son said she has a living will, is a DNR/DNI, and he is her POA. Please refer to Dr. Pickard' attestation for any changes to the treatment Principal Dx & Hospital Course #1 = Principal Diagnosis (1) Urinary tract infection: Pansensitive E. coli isolated. Was on IV Cipro and converted to p.o. Cipro to finish out 7-day course on 07/18 for total of 7 days Unfortunately, blood cultures were not obtained on admission but no evidence of sepsis Only symptom really was worsening generalized weakness especially in the lower extremities and fatigue Chronic constipation exacerbating-started daily MiraLAX and docusate-improved (2) Lower extremity weakness: Lumbar MRI scan reveals age-related changes. CT lumbar spine negative for fracture, shows osteopenia and spondylitic change-no indication for any surgical intervention. Weakness is probably related to urinary tract infection and possibly due to gabapentin as a side effect. OT and PT both recommend rehab placement at discharge. Supportive care. (3) Cognitive impairment: Supportive care. She is at her baseline With some anxiety as well (4) Rheumatoid arthritis: Stable. Will now hold leflunomide until treatment for UTI completed (5) Lethargy: Mild. Possibly from UTI but also could be due to gabapentin-lowered the dose to 300 mg dose at night and discontinued AM dose Plan DVT prophylaxis-heparin SQ Disposition-medically stable for discharge to SNF at [facility] I discussed her care with her daughter at the bedside on 07/15 and 07/16, 07/17 Discharge Exam Constitutional WD/WN, vitals as above Respiratory normal respiratory effort, lungs clear to auscultation Cardiovascular RRR, no murmur, no edema Gastrointestinal (Abdomen) normal bowel sounds, soft, nontender, no hepatosplenomegaly Updated Medication List Medication Instructions Recorded Confirmed Type denosumab 60 mg/mL subcutaneous 60 mg subcut .[id number] 07/01/19 07/12/23 History syringe (Prolia) leflunomide 10 mg tablet 10 mg PO QAM 07/01/19 07/12/23 History aspirin 81 mg tablet,delayed 81 mg PO QAM 10/06/19 07/12/23 History release (Adult Low Dose Aspirin) bimatoprost 0.01 % eye drops 1 drp ophthalmic (eye) DAILY 07/19/20 07/12/23 History (Lumigan) calcium carbonate 600 mg calcium 600 mg PO DAILY 03/07/22 07/12/23 History (1,500 mg) tablet (Calcium) cholecalciferol (vitamin D3) 50 50 mcg PO DAILY 03/07/22 07/12/23 History mcg (2,000 unit) capsule gabapentin 100 mg capsule See Rx Instructions PO .COMPLEX 05/21/23 07/12/23 Rx #450 caps acetaminophen 500 mg tablet 500 mg PO BID 07/12/23 07/12/23 History (Tylenol Extra Strength) cranberry 500 mg capsule 500 mg PO QAM 07/12/23 07/12/23 History ciprofloxacin HCl 500 mg tablet 500 mg PO BID #3 tabs 07/18/23 Rx docusate sodium 100 mg capsule 100 mg PO BID #60 caps 07/18/23 Rx polyvinyl alcohol 1.4 % eye drops 1 drp OPB QID PRN dry eye(s) #15 mL 07/18/23 Rx (Artificial Tears (polyvinyl alcohol)) tramadol 50 mg tablet 50 mg PO BID PRN Back Pain #6 tabs 07/18/23 Rx Hospital Stay Data Consultations 07/12/23 19:25 ED Decision to Admit Stat Diagnostic Imagining Performed 07/12/23 13:20 CT lumbar spine wo con Stat 07/12/23 15:13 MRI Lumbar Spine [MR lumbar spine wo/w con] Stat Pending Results Patient Have Any Pending Studies at Discharge: No Discharge Instructions Given to Patient (Per Discharging Provider) Finish out course of Cipro for the UTI through the end of 07/19/23. For your lethargy and weakness, you were treated for a UTI and your gabapentin dose was lowered to only taking 300mg at bedtime. You will need PT and OT for strengthening. Total Time Total Time Spent Total Time Spent (In Minutes): 35 min Coding Level of Care Code 45425 INP/OBS DISCH >30 MIN Diagnoses Urinary tract infection N39.0 Lower extremity weakness R29.898 Cognitive impairment R41.89 Rheumatoid arthritis M06.9 Lethargy R53.83
== END 2023-07-18 13:18 | DRG 690 ==
LOC: ED 11:51 → 3N 19:34 → SUATTDRO 19:34 → 3N 21:16